=== PATIENT | male | born 1940 | race Caucasian/White ===

== ENCOUNTER → 2020-06-19 13:34 | Outpatient (BNVA) | payer MEDICARE, SELFPAY | PROVIDERS: PCP Family Medicine; Visit Provider Anesthesiology | DX: M96.1 Postlaminectomy syndrome, not elsewhere classified (principal); M48.07 Spinal stenosis, lumbosacral region | CPT/HCPCS: 99204 ==

== ENCOUNTER 2020-07-01 09:00 | Outpatient (RCR) | payer MEDICARE, SELFPAY | END 2020-08-08 23:55 | disposition home or self-care (01) | LOC: HO.PAOS 09:00 | PROVIDERS: Visit Provider Psychologist | DX: F43.21 Adjustment disorder with depressed mood (principal) | CPT/HCPCS: 90791 ==

== ENCOUNTER 2020-09-13 09:09 | Day surgery (SDC) | payer MEDICARE, SELFPAY ==
[2020-09-09 11:28] VITALS: BMI 27.6
--- NOTE | 2020-09-11 12:05 | P.CONAN_ITS ---
Documented by User: Shaila Martínez 09/11/20 12:18 HPI - Anesthesia Eval Consult details Narrative: 80yo M for Lumbar Spinal Cord Simulation Trial Reviewed with Dr Uvaldo RUSSELL Past Medical History Medical History Anemia Arthritis Back pain CAD (coronary artery disease) CHF (congestive heart failure) CKD (chronic kidney disease) COPD (chronic obstructive pulmonary disease) Diabetes GERD (gastroesophageal reflux disease) Hiatal hernia High cholesterol Hx of deep venous thrombosis Hypertension Ischemic cardiomyopathy with implantable cardioverter-defibrillator (ICD) Left bundle branch block (LBBB) Orthostatic hypotension Pacemaker PVD (peripheral vascular disease) Surgical History Surgical History H/O mitral valve replacement History of esophagogastroduodenoscopy (EGD) History of femoropopliteal bypass Hx of colonoscopy Hx of coronary artery bypass graft Social History Social History Are you a primary healthcare project manager to a significant other at home: No Do you presently have visiting nurse or other home services: No Smoking Status: Former smoker Smoking Quit Date: 30 yrs ago Use of substances other than those prescribed or required for medical reasons: No Have you been hit, kicked, punched, or otherwise hurt by someone within the past year? If so, by whom?: No Advance Directives: No Advance Directives Information Provided: No Advance Directives on File: No Recently lost weight without trying: No Meds Allergies Allergy/AdvReac Type Severity Reaction Status Date / Time No Known Allergies Allergy Verified 09/09/20 11:07 Home Medications Medication Instructions Recorded Confirmed Type aspirin 81 mg tablet,delayed 81 mg PO DAILY 06/19/20 09/09/20 History release budesonide-formoterol HFA 160 2 puff INHALATION BID 06/19/20 09/09/20 History mcg-4.5 mcg/actuation aerosol inhaler carvedilol 25 mg tablet 25 mg PO BID 06/19/20 09/09/20 History cholecalciferol (vitamin D3) 50 50 mcg PO DAILY 06/19/20 09/09/20 History mcg (2,000 unit) capsule losartan 50 mg tablet 50 mg PO BID 06/19/20 09/09/20 History omeprazole 20 mg capsule,delayed 20 mg PO DAILY 06/19/20 09/09/20 History release rosuvastatin 40 mg tablet 40 mg PO DAILY 06/19/20 09/09/20 History spironolactone 25 mg tablet 25 mg PO BID 06/19/20 09/09/20 History Exam Exam Date and Time: September 11, 2020 1205 Height,Weight and Vital Signs: Height 5 ft 8.5 in Weight 83.461 kg Narrative Narrative: Per cardiology OV note 06/2020: Echo 2019: LVEF 50-55%, mild reduced RV sys function. (Full report not obtainable) Stress test 2016: Dilated LV with mod intensity, large size, mostly fixed defects involving the mid to distal anterior, inferior, and apical segments Pt had hospital admission r/t orthostatic hypotension and dehydration ICD Interr 07/29/20, on chart DDD-60, A-sensed, BiV paced 99% No shocks delivered Assessment and Plan Assessment Anesthesia Assessment: Chart Reviewed Documented by User: Percy Eden 09/13/20 10:01 [facility] Past Medical History Medical History Anemia Arthritis Back pain CAD (coronary artery disease) CHF (congestive heart failure) CKD (chronic kidney disease) COPD (chronic obstructive pulmonary disease) Diabetes GERD (gastroesophageal reflux disease) Hiatal hernia High cholesterol Hx of deep venous thrombosis Hypertension Ischemic cardiomyopathy with implantable cardioverter-defibrillator (ICD) Left bundle branch block (LBBB) Orthostatic hypotension Pacemaker PVD (peripheral vascular disease) Surgical History Surgical History H/O mitral valve replacement History of esophagogastroduodenoscopy (EGD) History of femoropopliteal bypass Hx of colonoscopy Hx of coronary artery bypass graft Social History Social History Are you a primary healthcare project manager to a significant other at home: No Do you presently have visiting nurse or other home services: No Smoking Status: Former smoker Smoking Quit Date: 30 yrs ago Use of substances other than those prescribed or required for medical reasons: No Have you been hit, kicked, punched, or otherwise hurt by someone within the past year? If so, by whom?: No Advance Directives: No Advance Directives Information Provided: No Advance Directives on File: No Recently lost weight without trying: No Meds Allergies Allergy/AdvReac Type Severity Reaction Status Date / Time No Known Allergies Allergy Verified 09/09/20 11:07 Home Medications Medication Instructions Recorded Confirmed Type aspirin 81 mg tablet,delayed 81 mg PO DAILY 06/19/20 09/09/20 History release budesonide-formoterol HFA 160 2 puff INHALATION BID 06/19/20 09/09/20 History mcg-4.5 mcg/actuation aerosol inhaler carvedilol 25 mg tablet 25 mg PO BID 06/19/20 09/09/20 History cholecalciferol (vitamin D3) 50 50 mcg PO DAILY 06/19/20 09/09/20 History mcg (2,000 unit) capsule losartan 50 mg tablet 50 mg PO BID 06/19/20 09/09/20 History omeprazole 20 mg capsule,delayed 20 mg PO DAILY 06/19/20 09/09/20 History release rosuvastatin 40 mg tablet 40 mg PO DAILY 06/19/20 09/09/20 History spironolactone 25 mg tablet 25 mg PO BID 06/19/20 09/09/20 History Exam Airway Mallampati Class: II TM Dist: >3cm Neck ROM: Full
--- NOTE | 2020-09-12 14:44 | MHC.SHP ---
Pre-Procedural Eval Section A The patient is an INPATIENT: No Changes since office visit: Yes Patient answered all questions The History & Physical has been completed within 30 days and I have reviewed it.: No Section B Chief Complaint: Postlaminectomy Syndrome Details of Present Illness: As above Relevant Family History (Specify if Yes): No Relevant Social History: None Present Medications: None Medical History: No relevant PMH History of Previous Operations: No relevant previous surgery Allergies: Allergies Allergy/AdvReac Type Severity Reaction Status Date / Time No Known Allergies Allergy Verified 09/09/20 11:07 Review of Systems Sugical H&P ROS: Negative: Constitution, Cardiovascular, Respiratory, Neurological, Psychiatric, Hem-Onc, Allergic/Immunologic, Gastrointestinal, Genitourinary, Musculoskeletal, Integumentary, Endocrine and Eyes/Ears/Nose/Throat Exam Surgical H&P Exam: Normal: HEENT, Normal: Heart, Normal: Lungs, Normal: Extremities, Normal: Abdomen, Normal: Skin and Normal: Neurological Plan Diagnosis/Plan: Unchanged I have reviewed the history and physical and performed a pertinent physical examination on my patient. No changes have occurred unless specified.
[2020-09-13] VITALS (7 sets, daily range): BP systolic 112–142; BP diastolic 49–89; PULSE 78–102; RESP 16–20; TEMP 36.1–36.3; O2SAT 95–98
--- NOTE | 2020-09-13 07:33 | FL_ITS ---
EXAMINATION: XR FLUOROSCOPY WITH IMAGES CLINICAL INFORMATION: Pain COMPARISON: None. TECHNIQUE: Fluoroscopy performed by Dr. Jose Mederos. Fluoroscopy time: 5.2 minutes DAP: 18.6 Gycm2 Images: 3 FINDINGS: There are 2 spinal stimulator electrode leads ascending in the posterior spinal canal with distal ends in region of lower thoracic spine. There are sternotomy wires and a prosthetic cardiac valve suggested on the AP view. FL/FL guidance in OR IMPRESSION: Fluoroscopy for pain management procedure.
[2020-09-13 09:35] LABS: Glucose, Whole Blood 103 mg/dL (60-115)
[2020-09-13] MEDS: ceFAZolin Sodium/Dextrose,Iso 2 GM/50 ML PIGGYBACK IV (09:54)
[2020-09-13] MEDS: Lactated Ringers 1,000 ML 20 ML IVCONT (09:54)
--- NOTE | 2020-09-13 11:54 | PM.OP ---
Brief Operative Note Date of Service: 09/13/20 Pre-op diagnosis: Postlaminectomy syndrome Post-op diagnosis: same Procedure: Trial of Nevro spinal cord stimulator Implants: Temporary leads in the thoracic epidural space Surgeon: Jose Mederos MD Anesthesia: GETA Estimated blood loss (mL): 0 Pathology: none sent Condition: stable Disposition: PACU
--- NOTE | 2020-09-13 12:57 | HO.POSTANES ---
Post Anesthesia Evaluation Post Anesthesia Evaluation Vital Signs: Vital Signs Temp Pulse Resp BP Pulse Ox 09/13/20 12:30 88 16 136/80 97 09/13/20 12:13 97 F 94 16 141/79 H 96 09/13/20 11:58 96 20 123/49 L 98 09/13/20 11:53 83 20 121/86 98 09/13/20 11:48 78 16 112/89 98 09/13/20 11:43 97.0 F 82 16 140/80 H 98 09/13/20 09:40 97.4 F 102 H 16 142/71 H 95 Anesthesia: Monitored Mental Status: Awake Pain Control: Satisfactory Nausea/Vomiting: None Hydration: Adequate Anesthesia-Related Issues: No Anes. Related Issues
--- NOTE | 2020-09-15 10:07 | P.OP_ITS ---
Operative Note Operative Note Date of Service: 09/13/20 Narrative: Mr. Dejesus is very pleasant 80 y.o years old gentleman who came today into the operating room for trial of spinal cord stimulator NEVRO for the treatment of post laminectomy syndrome. Preoperatively patient received 2g c efazoline IV approximately 30 minutes before the procedure. After obtaining informed consent patient was brought to the operating room, HE was positioned prone on operating table, [place] [employer] monitors were applied and patient was deeply sedated. The patient was taken inside of the operating room where he was positioned prone operating table. Time-out was performed delineating correct site, side, the nature of the procedure, patient's allergy, preoperative antibiotic if needed. All operating room staff was participating in OR time-out procedure. Patient's entire back was prepped with ChloraPrep twice and draped with full body fenestrated drape. Sterilely draped C-arm was brought over operating field and sqare picture of T11-T12 L1 L2 vertebrae as were demonstrated on the screen. Attention FIRST was concentrated on the L1-L2 epidural interspace. The location of the projection of the right pedicle center of the L3 vertebra was found on the skin using C-arm. This location was injected with mixture of lidocaine 2% and Marcaine 0.5% 5 cc. After that 11 blade was used to make a danie on the skin. 10 cm 14 gauge introducer epidural needle was inserted th rough the danie and advanced to L1-L2 epidural interspace. The advancement of the needle was performed on anterior posterior and lateral views. Guitar wire and loss of resistance technique were used to locate epidural space. When guitar wire was spread in the epidural fashion, epidural lead was inserted through the skin and it was advanced to T8 position SLIGHTLY LEFT, OF THE MIDLINE. After that location of the projection of the LEFT pedicle center of the L3 vertebra was found on the skin using C-arm. This location was injected with mixture of lidocaine 2% and Marcaine 0.5% 5 cc. After that 11 blade was used to make a danie on the skin. 10 cm 14 gauge curved introducer epidural needle was inserted through the danie and advanced to L1-L2 epidural interspace. The advancement of the needle was performed on anterior posterior and lateral views. Guitar wire and loss of resistance technique were used to locate epidural space. When guitar wire was spread in the epidural fashion, epidural lead was inserted through the needle and advanced to the middle of T9 epidural interspace right to the existing electrode. At this moment patient was awaken and the epidural leads were connected to the testing device.Impedance was found to be satisfactory, the needles were withdrawn, the stylette wires were removed from the epidural leads. The anchoring devices were dislodged on the leads and advanced to the level of the skin. The anchoring devices were sutured with two 0-0 silk sutures to the skin of the patient. The fixation screw of each anchoring device was rotated until 3 clicks were heard. The leads were connected to testing device. Bacitracin ointment was applied to the entrance point of bilateral needles. Sterile dressing was applied to the patient's back. The testing wires was also taped to the patient's back.
== END 2020-09-13 12:53 | disposition home or self-care (01) ==
PROVIDERS: PCP Family Medicine; Visit Provider Anesthesiology
PROC: (CPT 63650; principal; 2020-09-13 10:40)
DX: M96.1 Postlaminectomy syndrome, not elsewhere classified (principal); D64.9 Anemia, unspecified; I13.0 Hypertensive heart and chronic kidney disease with heart failure and stage 1 through stage 4 chronic kidney disease, or unspecified chronic kidney disease; N18.9 Chronic kidney disease, unspecified; I50.9 Heart failure, unspecified; R73.03 Prediabetes; I25.5 Ischemic cardiomyopathy; I11.0 Hypertensive heart disease with heart failure; I44.7 Left bundle-branch block, unspecified; I95.1 Orthostatic hypotension; J44.9 Chronic obstructive pulmonary disease, unspecified; Z95.810 Presence of automatic (implantable) cardiac defibrillator; I73.9 Peripheral vascular disease, unspecified; Z79.899 Other long term (current) drug therapy; Z79.51 Long term (current) use of inhaled steroids; Z87.891 Personal history of nicotine dependence
CPT/HCPCS: 63650 ×2; 82947; C1897; J0690; J1100; J2405; J3010

== ENCOUNTER → 2020-09-19 12:50 | Outpatient (BNVA) | payer MEDICARE, SELFPAY | PROVIDERS: PCP Family Medicine; Visit Provider Anesthesiology | DX: M96.1 Postlaminectomy syndrome, not elsewhere classified (principal); M48.07 Spinal stenosis, lumbosacral region | CPT/HCPCS: 99212 ==

== ENCOUNTER 2020-10-22 07:03 | Outpatient (REF) | payer MEDICARE, SELFPAY | END 2020-10-22 07:04 | disposition home or self-care (01) | LOC: HO.RADIR 07:03 | PROVIDERS: Visit Provider Anesthesiology | DX: Z13.89 Encounter for screening for other disorder (principal) ==

== ENCOUNTER → 2020-11-01 15:41 | Outpatient (BNVA) | payer MEDICARE, SELFPAY | PROVIDERS: PCP Family Medicine; Visit Provider Anesthesiology ==

== ENCOUNTER 2020-11-26 07:15 | Outpatient (REF) | payer MEDICARE, SELFPAY | END 2020-11-26 07:16 | disposition home or self-care (01) | LOC: HO.RADIR 07:15 | PROVIDERS: Visit Provider Anesthesiology | DX: Z13.89 Encounter for screening for other disorder (principal) ==

== ENCOUNTER 2020-11-26 11:16 | Day surgery (SDC) | payer MEDICARE, SELFPAY ==
--- NOTE | 2020-10-21 11:53 | HO.ANESPROP2 ---
HPI - Anesthesia Eval Consult details Narrative: 80yo M for Spinal Stimulation Implant s/p spinal stim trial 09/13/20 with GA-ETT 7.5 Pt rescheduled by surgeon DREW Active Problems Active Problems: All Active Problems (Updated 09/19/20 @ 17:07 by Jose Mederos MD) Post laminectomy syndrome (Acute) Spinal stenosis (Acute) Past Medical History Medical History Anemia Arthritis Back pain CAD (coronary artery disease) CHF (congestive heart failure) CKD (chronic kidney disease) COPD (chronic obstructive pulmonary disease) Diabetes GERD (gastroesophageal reflux disease) Hiatal hernia High cholesterol Hx of deep venous thrombosis Hypertension Ischemic cardiomyopathy with implantable cardioverter-defibrillator (ICD) Left bundle branch block (LBBB) Orthostatic hypotension Pacemaker PVD (peripheral vascular disease) Surgical History Surgical History H/O mitral valve replacement History of esophagogastroduodenoscopy (EGD) History of femoropopliteal bypass Hx of colonoscopy Hx of coronary artery bypass graft Social History Social History Smoking Status: Former smoker Meds Allergies Allergy/AdvReac Type Severity Reaction Status Date / Time No Known Allergies Allergy Verified 09/09/20 11:07 Home Medications Medication Instructions Recorded Confirmed Last Taken Type aspirin 81 mg tablet,delayed 81 mg PO DAILY 06/19/20 10/17/20 09/06/20 07:00 History release budesonide-formoterol HFA 160 2 puff INHALATION BID 06/19/20 10/17/20 09/13/20 07:00 History mcg-4.5 mcg/actuation aerosol inhaler carvedilol 25 mg tablet 25 mg PO BID 06/19/20 10/17/20 09/13/20 07:00 History cholecalciferol (vitamin D3) 50 50 mcg PO DAILY 06/19/20 10/17/20 09/13/20 07:00 History mcg (2,000 unit) capsule losartan 50 mg tablet 50 mg PO BID 06/19/20 10/17/20 09/13/20 07:00 History omeprazole 20 mg capsule,delayed 20 mg PO DAILY 06/19/20 10/17/20 09/13/20 07:00 History release rosuvastatin 40 mg tablet 40 mg PO DAILY 06/19/20 10/17/20 09/13/20 07:00 History spironolactone 25 mg tablet 25 mg PO BID 06/19/20 10/17/20 09/13/20 07:00 History Exam Exam Date and Time: October 21, 2020 1153 Narrative Narrative: Per cardiology OV note 06/2020: Echo 2019: LVEF 50-55%, mild reduced RV sys function. (Full report not obtainable) Stress test 2016: Dilated LV with mod intensity, large size, mostly fixed defects involving the mid to distal anterior, inferior, and apical segments Pt had hospital admission r/t orthostatic hypotension and dehydration ICD Interr 07/29/20, on chart DDD-60, A-sensed, BiV paced 99% No shocks delivered Assessment and Plan Assessment Anesthesia Assessment: Chart Reviewed
--- NOTE | 2020-11-25 09:10 | HO.ANESPROP2 ---
Documented by User: Shaila Wilkesney 11/25/20 09:13 HPI - Anesthesia Eval Consult details Narrative: 80yo M for Lumbar Spinal Stimulation Implant s/p stim trial 08/2020 with GA-ETT 7.5 PMFSH Active Problems Active Problems: All Active Problems (Updated 09/19/20 @ 17:07 by Jose Mederos MD) Post laminectomy syndrome (Acute) Spinal stenosis (Acute) Past Medical History Medical History Anemia Arthritis Back pain CAD (coronary artery disease) CHF (congestive heart failure) CKD (chronic kidney disease) COPD (chronic obstructive pulmonary disease) Diabetes GERD (gastroesophageal reflux disease) Hiatal hernia High cholesterol Hx of deep venous thrombosis Hypertension Ischemic cardiomyopathy with implantable cardioverter-defibrillator (ICD) Left bundle branch block (LBBB) Orthostatic hypotension Pacemaker PVD (peripheral vascular disease) Surgical History Surgical History H/O mitral valve replacement History of esophagogastroduodenoscopy (EGD) History of femoropopliteal bypass Hx of colonoscopy Hx of coronary artery bypass graft Social History Social History Smoking Status: Former smoker Use of substances other than those prescribed or required for medical reasons: No Have you been hit, kicked, punched, or otherwise hurt by someone within the past year? If so, by whom?: No Advance Directives: No Advance Directives Information Provided: No Recently lost weight without trying: No Meds Allergies Allergy/AdvReac Type Severity Reaction Status Date / Time No Known Allergies Allergy Verified 09/09/20 11:07 Home Medications Medication Instructions Recorded Confirmed Last Taken Type aspirin 81 mg tablet,delayed 81 mg PO DAILY 06/19/20 10/17/20 11/18/20 History release budesonide-formoterol HFA 160 2 puff INHALATION BID 06/19/20 10/17/20 09/13/20 07:00 History mcg-4.5 mcg/actuation aerosol inhaler carvedilol 25 mg tablet 25 mg PO BID 06/19/20 10/17/20 11/26/20 History cholecalciferol (vitamin D3) 50 50 mcg PO DAILY 06/19/20 10/17/20 09/13/20 07:00 History mcg (2,000 unit) capsule losartan 50 mg tablet 50 mg PO BID 06/19/20 10/17/20 09/13/20 07:00 History omeprazole 20 mg capsule,delayed 20 mg PO DAILY 06/19/20 10/17/20 11/26/20 History release rosuvastatin 40 mg tablet 40 mg PO DAILY 06/19/20 10/17/20 09/13/20 07:00 History spironolactone 25 mg tablet 25 mg PO BID 06/19/20 10/17/20 11/26/20 History Exam Exam Date and Time: November 25, 2020 0910 Narrative Narrative: Per cardiology OV note 06/2020: Echo 2019: LVEF 50-55%, mild reduced RV sys function. (Full report not obtainable) Stress test 2016: Dilated LV with mod intensity, large size, mostly fixed defects involving the mid to distal anterior, inferior, and apical segments Pt had hospital admission r/t orthostatic hypotension and dehydration ICD Interr 07/29/20, on chart DDD-60, A-sensed, BiV paced 99% No shocks delivered Assessment and Plan Assessment Anesthesia Assessment: Chart Reviewed Documented by User: Ericka Acuña 11/26/20 13:43 [facility] Past Medical History Medical History Anemia Arthritis Back pain CAD (coronary artery disease) CHF (congestive heart failure) CKD (chronic kidney disease) COPD (chronic obstructive pulmonary disease) Diabetes GERD (gastroesophageal reflux disease) Hiatal hernia High cholesterol Hx of deep venous thrombosis Hypertension Ischemic cardiomyopathy with implantable cardioverter-defibrillator (ICD) Left bundle branch block (LBBB) Orthostatic hypotension Pacemaker PVD (peripheral vascular disease) Family History Family history of problems with anesthesia: No Surgical History Surgical History H/O mitral valve replacement History of esophagogastroduodenoscopy (EGD) History of femoropopliteal bypass Hx of colonoscopy Hx of coronary artery bypass graft History of Problems with Anesthesia: No Social History Social History Smoking Status: Former smoker Use of substances other than those prescribed or required for medical reasons: No Have you been hit, kicked, punched, or otherwise hurt by someone within the past year? If so, by whom?: No Advance Directives: No Advance Directives Information Provided: No Recently lost weight without trying: No Meds Allergies Allergy/AdvReac Type Severity Reaction Status Date / Time No Known Allergies Allergy Verified 09/09/20 11:07 Home Medications Medication Instructions Recorded Confirmed Last Taken Type aspirin 81 mg tablet,delayed 81 mg PO DAILY 06/19/20 10/17/20 11/18/20 History release budesonide-formoterol HFA 160 2 puff INHALATION BID 06/19/20 10/17/20 09/13/20 07:00 History mcg-4.5 mcg/actuation aerosol inhaler carvedilol 25 mg tablet 25 mg PO BID 06/19/20 10/17/20 11/26/20 History cholecalciferol (vitamin D3) 50 50 mcg PO DAILY 06/19/20 10/17/20 09/13/20 07:00 History mcg (2,000 unit) capsule losartan 50 mg tablet 50 mg PO BID 06/19/20 10/17/20 09/13/20 07:00 History omeprazole 20 mg capsule,delayed 20 mg PO DAILY 06/19/20 10/17/20 11/26/20 History release rosuvastatin 40 mg tablet 40 mg PO DAILY 06/19/20 10/17/20 09/13/20 07:00 History spironolactone 25 mg tablet 25 mg PO BID 06/19/20 10/17/20 11/26/20 History Exam Height,Weight and Vital Signs: Vital Signs Temp Pulse Resp BP Pulse Ox 11/26/20 11:52 97.6 F 87 18 103/50 L 98 Pertinent Lab Results Pertinent Lab Results: Lab Results 11/26/20 11/26/20 11/26/20 Range/Units 11:58 12:15 12:15 WBC 10.7 (4.8-10.8) X10*3/uL RBC 4.38 L (4.60-5.80) X10*6/uL Hgb 14.1 (14.0-18.0) g/dl Hct 42.3 (42-52) % MCV 96.6 (80-98) fL MCH 32.2 (27.0-33.0) pg MCHC 33.3 (31.0-36.0) g/dl RDW 12.3 (11.0-16.0) % Plt Count 224 (160-400) X10*3/uL MPV 9.1 L (9.4-12.4) fL Absolute Nucleated RBC 0.000 (0.0-0.012) X10*3/uL Nucleated RBC % (auto) 0.0 (0.0-0.2) /100WBC Sodium 141 (135-145) mmol/L Potassium 4.3 (3.3-5.1) mmol/L Chloride 104 (96-108) mmol/L Carbon Dioxide 23 (22-29) mmol/L Anion Gap 18 (12-20) BUN 13 (9-16) mg/dL Creatinine 0.83 (0.5-1.4) mg/dL Estim Creat Clear Calc 29.0 Estimated GFR > 60 POC Glucose 98 (60-115) mg/dL Fasting Glucose 104 H (60-99) mg/dL Calcium 9.0 (8.4-10.2) mg/dL Airway Mallampati Class: II TM Dist: >3cm Neck ROM: Full Heart: RRR Lungs: CTAB Assessment and Plan Assessment Anesthesia Assessment: Anesthesia Plan Discussed and Chart Reviewed Final Anesthetic Review NPO: Yes ASA Class: III Final Preanesthetic Review: No Changes in Pt Med Stat, Meds/Allgs Chart Reviewed, Consent Obtained/Reviewed and Anes Risks/Benef Reviewed Patient Risk: High Procedure Risk: Intermediate Assessment/Block/Sedation in SS: Assess/Block/Sedation-SS Anesthetic Plan Anesthetic Plan: MAC: Disposition: Standard PACU
--- NOTE | ~2020-11-26 | FL_ITS ---
EXAMINATION: XR FLUOROSCOPY WITH IMAGES CLINICAL INFORMATION: Spinal stimulator implant COMPARISON: X-ray 09/13/2020 TECHNIQUE: Fluoroscopy performed by Dr. Jose Mederos. Fluoroscopy time: 5.5 minutes DAP: 113 mGycm2 Images: 4 FINDINGS: There are posterior epidural 2 spinal stimulators in the mid dorsal spine. There is mild spondylosis. No lytic process. FL/FL guidance in OR IMPRESSION: Fluoroscopy was provided to Dr. Jose Mederos during spinal stimulator insertion
[2020-11-26 11:38] VITALS: BMI 27.9
[2020-11-26 11:52] VITALS: BP 103/50; PULSE 87; RESP 18; TEMP 36.4; O2SAT 98
[2020-11-26 12:06] LABS: Glucose, Whole Blood 98 mg/dL (60-115)
[2020-11-26] MEDS: Lactated Ringers 1,000 ML 20 ML IVCONT (12:13)
--- NOTE | 2020-11-26 12:19 | PC.NURSE ---
dr gregory at bedside speaking to patient pt verbalized understanding of plan of care
[2020-11-26 12:21] LABS: Hematocrit 42.3 % (42-52); Hemoglobin 14.1 g/dl (14.0-18.0); Mean Corpuscular HGB Conc 33.3 g/dl (31.0-36.0); Mean Corpuscular Hemoglobin 32.2 pg (27.0-33.0); Mean Corpuscular Volume 96.6 fL (80-98); Mean Platelet Volume 9.1 fL (9.4-12.4); Platelet Count 224 X10*3/uL (160-400); Red Blood Count 4.38 X10*6/uL (4.60-5.80); Red Cell Distribution Width 12.3 % (11.0-16.0); White Blood Count 10.7 X10*3/uL (4.8-10.8)
[2020-11-26 12:52] LABS: Anion Gap 18 (12-20); Blood Urea Nitrogen 13 mg/dL (9-16); Carbon Dioxide 23 mmol/L (22-29); Chloride 104 mmol/L (96-108); Estimated Glomerular Filt Rate > 60; Glucose Fasting 104 mg/dL (60-99); Potassium 4.3 mmol/L (3.3-5.1); Sodium 141 mmol/L (135-145)
--- NOTE | 2020-11-26 13:11 | MHC.SHP ---
Pre-Procedural Eval Section B Chief Complaint: postlaminectomy syndrome Details of Present Illness: as above Relevant Family History (Specify if Yes): No Relevant Social History: None Present Medications: see Short Stay Collaborative assessment Medical History: No relevant PMH History of Previous Operations: Relevant previous surgery/procedure and date(s) Allergies: Allergies Allergy/AdvReac Type Severity Reaction Status Date / Time No Known Allergies Allergy Verified 09/09/20 11:07 Review of Systems Sugical H&P ROS: Negative: Constitution, Cardiovascular, Respiratory, Neurological, Psychiatric, Hem-Onc, Allergic/Immunologic, Gastrointestinal, Genitourinary, Musculoskeletal, Integumentary, Endocrine and Eyes/Ears/Nose/Throat Exam Surgical H&P Exam: Normal: HEENT, Normal: Heart, Normal: Lungs, Normal: Extremities, Normal: Abdomen, Normal: Skin and Normal: Neurological Plan Diagnosis/Plan: Unchanged I have reviewed the history and physical and performed a pertinent physical examination on my patient. No changes have occurred unless specified.
[2020-11-26 15:35] VITALS: BP 126/75; PULSE 81; RESP 12; TEMP 36.8; O2SAT 97
--- NOTE | 2020-11-26 15:38 | PM.OP ---
Brief Operative Note Date of Service: 11/26/20 Pre-op diagnosis: Postlaminectomy syndrome Post-op diagnosis: same Procedure: Implantation of spinal cord stimulator Nevro Implants: Spinal cord battery and tool epidural stimulating leads Surgeon: Jose Mederos MD Anesthesia: MAC Estimated blood loss (mL): 20 Condition: stable Disposition: PACU
[2020-11-26 15:50] VITALS: BP 110/71; PULSE 76; RESP 16; O2SAT 98
[2020-11-26 16:05] VITALS: BP 113/45; PULSE 80; RESP 16; TEMP 36.8; O2SAT 95
[2020-11-26] MEDS: oxyCODONE HCl Immed Release 5 MG TABLET PO (16:13)
--- NOTE | 2020-11-26 16:48 | P.OP_ITS ---
Operative Note Operative Note Date of Service: 11/26/20 Narrative: Mr. Dejesus is very pleasant 80 years old gentleman who came today into the operating room for implantation of spinal cord stimulator for the treatment of pain related to degenerative disc disease. He had successful trial of spinal cord stimulation. Preoperatively patient received 2 g cefazolin _approximately 30 minutes before the procedure. After obtaining informed consent patient was brought to the operating room, he was positioned prone on operating table, [place] [employer] monitors were applied and patient was deeply sedated. Time-out was performed delineating correct site, side, the nature of the procedure, patient's allergy, preoperative antibiotic. All operating room staff was participating in OR time-out procedure. Patient's entire back was prepped with ChloraPrep twice and draped with full body drape including Ioban film. Sterilely draped C-arm was brought over operating field and sqare picture of T12, L1, L2 vertebrae as were demonstrated on the screen. THE PROJECTION OF L2-L3 SPINAL PROCESSES TO THE SKIN WERE INFILTRATED WITH LIDOCAINE 2% MIXED WITH BUPIVACAINE 0.5%. Six CM LONG VERTICAL INCISION using a 10 blade scalpel WAS PERFORMED IN STRICT MIDLINE VERTICAL F ASHION. THOROUGH HEMOSTASIS WAS PERFORMED using electrocautery. Thorough tissue dissections was performed until prevertebral fascia was freed from overlying tissues. Attention FIRST was concentrated on the RIGHT L1-L2 epidural interspace. The location of the projection of the right pedicle center of the L3 vertebra was found on the prevertebral fascia using C-arm. This location was injected with mixture of lidocaine 2% and Marcaine 0.5% 5 cc in approximate direction of needle advancement.. After that 10 cm 14 gauge straight introducer epidural needle was inserted through the fascia and advanced toward L1-L2 epidural interspace. The advancement of the needle was performed on anterior posterior and lateral views. Guitar wire and loss of resistance technique were used to locate epidural space. When guitar wire was spread in the epidural fashion, epidural lead was inserted through the skin and it was advanced to T8 position POSTERIOR EPIDURAL SPACE slightly left TO THE MIDLINE. After that location of the projection of the LEFT pedicle center of the L3 vertebra was found -using C-arm. This location was injected with mixture of lidocaine 2% and Marcaine 0.5% 5 cc.. . 10 cm 14 gauge curved introducer epidural needle was inserted through the fascia and advanced to T12-L1 epidural interspace. The advancement of the needle was performed on anterior posterior and lateral views. Guitar wire and loss of resistance technique were used to locate epidural space. When guitar wire was spread in the epidural fashion, epidural lead was inserted through the needle and advanced to the T9 POSTERIOR EPIDURAL SPACE SLIGHTLY right to the existing line .. THE LOCATION OF BOTH LEADS WAS VERIFIED ON ANTERIOR POSTERIOR AND LATERAL VIEWS. After satisfactory position of the leads were established the needles were withdrawn, the stylette wires were removed from the epidural leads. The anchoring devices were dislodged on the leads and advanced to the level of the skin. The anchoring devices were advanced along the epidural leads and dislodged and epidural leads at the level of prevertebral fascia. They were sutured to prevertebral fascia with 2 separate etibone sutures per each anchoring device. The fixating screws was fixed until 3 clicks were heard on each anchoring device. After that the wound was irrigated with copious amount of Vancomycin containing normal saline and packed with Vancomycin soaked 4 x 4. After that attention was concentrated on the left loin of the patient where he wanted battery to be implanted. 6 cm long horizontal incision was performed 3 cm below the lowest portion of the left 12th rib. Subcutaneous pocket was formed not deeper than 1.5 cm under the skin using dull dissection and electrocautery dissection. Thorough hemostasis was obtained. The wound was irrigated with copious amount of Vancomycin contained normal saline. Tunneling device was used to connect the 2 wounds and epidural leads were dislodged into side wound. They were connected to the Nevro battery and locked with a locking screwdriver device. Impedance was checked and appeared to be satisfactory. After that the anchoring sutures ethibond were applied in the most superior medial and most superior lateral corners of the wound. After that they were connected to the anchoring holes on the body of the battery, the epidural leads were gathered behind the body of the-battery, the battery and the leads were inserted into the pocket wound and after that the anchoring 2 sutures were tied. The wounds were irrigated again with Vancomycin containing normal saline, thorough hemostasis was checked, and after that the wounds were closed using 0 Vicryl. After that the skin edges wore approximated using 2 0 Vicryl, cony were applied to the wounds at the level of the skin. Bacitracin ointment was applies to the level of the cony and sterile dressings were applied to the staple lines. Medipore Tape was applied to hold the dressing to the patient's skin. Abdominal binder to wear was provided to the patient. At this moment patient was awaken and transferred to the bed. He was recovering uneventfully in PACU.
== END 2020-11-26 16:28 | disposition home or self-care (01) ==
PROVIDERS: Nurse Practitioner; PCP Family Medicine; Visit Provider Anesthesiology
PROC: (CPT 63685; principal; 2020-11-26 13:00)
DX: M96.1 Postlaminectomy syndrome, not elsewhere classified (principal); M48.07 Spinal stenosis, lumbosacral region; D64.9 Anemia, unspecified; I12.9 Hypertensive chronic kidney disease with stage 1 through stage 4 chronic kidney disease, or unspecified chronic kidney disease; N18.9 Chronic kidney disease, unspecified; R73.03 Prediabetes; Z79.82 Long term (current) use of aspirin; Z79.899 Other long term (current) drug therapy
CPT/HCPCS: 63685; 63650 ×2; 36415; 80048; 82947; 85027; C1713; C1778; C1787; C1816; J0690; J2250; J2370; J3010; J3370

== ENCOUNTER → 2020-12-02 12:55 | Outpatient (BNVA) | payer MEDICARE, SELFPAY | PROVIDERS: PCP Family Medicine; Visit Provider Anesthesiology | DX: M96.1 Postlaminectomy syndrome, not elsewhere classified (principal); M48.07 Spinal stenosis, lumbosacral region | CPT/HCPCS: 99212 ==

== ENCOUNTER → 2020-12-09 13:01 | Outpatient (BNVA) | payer MEDICARE, SELFPAY | PROVIDERS: PCP Family Medicine; Visit Provider Anesthesiology | DX: M96.1 Postlaminectomy syndrome, not elsewhere classified (principal); M48.07 Spinal stenosis, lumbosacral region | CPT/HCPCS: 99212 ==

== ENCOUNTER → 2022-11-02 15:24 | Outpatient (BNVA) | payer MEDICARE, SELFPAY | PROVIDERS: PCP Family Medicine; Visit Provider Anesthesiology | DX: M96.1 Postlaminectomy syndrome, not elsewhere classified (principal); M48.07 Spinal stenosis, lumbosacral region; M46.1 Sacroiliitis, not elsewhere classified; M53.3 Sacrococcygeal disorders, not elsewhere classified | CPT/HCPCS: 99212 ==

== ENCOUNTER 2022-12-15 06:06 | Outpatient (REF) | payer MEDICARE, SELFPAY ==
--- NOTE | ~2022-12-15 | FL_ITS ---
EXAMINATION: XR FLUOROSCOPY WITH IMAGES CLINICAL INFORMATION: M53.3 - Sacrococcygeal disorders, not elsewhere classified COMPARISON: None available. TECHNIQUE: Fluoroscopy Supervised By: Dr. Jose Mederos. Fluoroscopy Time: 0.7 minutes. Cumulative Dose: 15.0 mGy. DAP: 4.08 Gycm2. Images: 2. FINDINGS: Spinal needle overlies mid to lower left SI joint and mid right SI joint, respectively. There is contrast in the periarticular soft tissues with probable early intra-articular contrast. There is fusion hardware and clips overlying lower lumbar spine. FL/FL guidance in treatment room IMPRESSION: Fluoroscopy for pain management procedures.
== END 2022-12-15 06:07 | disposition home or self-care (01) ==
LOC: CF 06:06
PROVIDERS: Visit Provider Anesthesiology
DX: M53.3 Sacrococcygeal disorders, not elsewhere classified (principal); M96.1 Postlaminectomy syndrome, not elsewhere classified; M48.07 Spinal stenosis, lumbosacral region; M46.1 Sacroiliitis, not elsewhere classified
CPT/HCPCS: 27096

== ENCOUNTER → 2022-12-16 14:41 | Outpatient (BNVA) | payer MEDICARE, SELFPAY | PROVIDERS: PCP Family Medicine; Visit Provider Anesthesiology | DX: M96.1 Postlaminectomy syndrome, not elsewhere classified (principal); M46.1 Sacroiliitis, not elsewhere classified; M48.07 Spinal stenosis, lumbosacral region; M53.3 Sacrococcygeal disorders, not elsewhere classified | CPT/HCPCS: Q3014 ==

== ENCOUNTER 2023-01-12 05:56 | Outpatient (REF) | payer MEDICARE, SELFPAY ==
--- NOTE | ~2023-01-12 | FL_ITS ---
EXAMINATION: XR FLUOROSCOPY WITH IMAGES CLINICAL INFORMATION: Post laminectomy syndrome COMPARISON: None available. TECHNIQUE: Fluoroscopy Supervised By: Dr. Jose Mederos. Fluoroscopy Time: 0.2. Cumulative Dose: 4.5 mGy. DAP: 1.2 Gycm2. Images: 2. FINDINGS: Images demonstrate needle projecting over the lower sacrum. FL/FL guidance in treatment room IMPRESSION: Fluoroscopy guidance for pain management procedure.
== END 2023-01-12 05:57 | disposition home or self-care (01) ==
LOC: CF 05:56
PROVIDERS: Visit Provider Anesthesiology
DX: M96.1 Postlaminectomy syndrome, not elsewhere classified (principal); M48.07 Spinal stenosis, lumbosacral region
CPT/HCPCS: 62323; J3301; Q9965

== ENCOUNTER → 2023-02-08 08:47 | Outpatient (BNVA) | payer MEDICARE, SELFPAY | PROVIDERS: PCP Family Medicine; Visit Provider Anesthesiology | DX: M96.1 Postlaminectomy syndrome, not elsewhere classified (principal); M48.07 Spinal stenosis, lumbosacral region; M46.1 Sacroiliitis, not elsewhere classified; M53.3 Sacrococcygeal disorders, not elsewhere classified | CPT/HCPCS: 99212 ==

== ENCOUNTER → 2023-02-17 08:25 | Outpatient (BNVA) | payer MEDICARE, SELFPAY | PROVIDERS: PCP Family Medicine; Visit Provider Anesthesiology | DX: M96.1 Postlaminectomy syndrome, not elsewhere classified (principal); M48.07 Spinal stenosis, lumbosacral region; M46.1 Sacroiliitis, not elsewhere classified; M53.3 Sacrococcygeal disorders, not elsewhere classified | CPT/HCPCS: Q3014 ==

== ENCOUNTER 2023-03-16 06:07 | Outpatient (REF) | payer MEDICARE, SELFPAY ==
--- NOTE | ~2023-03-16 | FL_ITS ---
EXAMINATION: XR FLUOROSCOPY WITH IMAGES CLINICAL INFORMATION: Postlaminectomy syndrome, not elsewhere classified. COMPARISON: None available. TECHNIQUE: Fluoroscopy Supervised By: Dr. Jose Mederos. Fluoroscopy Time: 0.2 minutes. Cumulative Dose: 4.54 mGy. DAP: 0.0789 Gycm2. Images: 2. FINDINGS: There are 2 digital images AP and lateral views reveal right pedicle screws at L4 and L3 vertebra with interconnecting abad. There is mild levoscoliosis lumbar spine. There are 2 electrodes seen to extending from L4-L5 disc level superiorly with the tips not in the [id number]. No aggressive lytic or sclerotic process seen. There is a solitary needle positioned posterior L3 vertebra likely in anterior epidural space or intraspinal canal. FL/FL guidance in treatment room IMPRESSION: Fluoroscopy guidance was provided to referring physician for pain management.
== END 2023-03-16 06:08 | disposition home or self-care (01) ==
LOC: CF 06:07
PROVIDERS: Visit Provider Anesthesiology
DX: M96.1 Postlaminectomy syndrome, not elsewhere classified (principal); M48.07 Spinal stenosis, lumbosacral region; M46.1 Sacroiliitis, not elsewhere classified; M53.3 Sacrococcygeal disorders, not elsewhere classified
CPT/HCPCS: 62323; J1170

== ENCOUNTER 2023-03-16 09:56 | Outpatient (AMB) | payer MEDICARE, SELFPAY ==
--- NOTE | 2023-03-16 10:04 | MHC.OFFVIS ---
Intake Vital Signs 03/16/23 10:05 03/16/23 12:35 Height 5 ft 8 in 5 ft 8 in Weight 184 lb 184 lb BMI 28.0 28.0 BP 128/76 116/70 Blood Pressure Location Rt brachial Rt brachial Position Sitting Sitting Respiration 16 14 Pulse 103 H 96 Pulse Source Pulse Oximeter Pulse Oximeter Pulse Oximetry (%) 98 98 Oxygen Delivery Method Room Air Room Air Comment Pre-op Post-op Intake Visit Reasons: Trial of ITDD Dilaudid Allergies No Known Allergies Allergy (Verified 03/16/23 10:04) PFSH Medical History Anemia Arthritis Back pain CAD (coronary artery disease) CHF (congestive heart failure) CKD (chronic kidney disease) COPD (chronic obstructive pulmonary disease) Diabetes GERD (gastroesophageal reflux disease) Hiatal hernia High cholesterol Hx of deep venous thrombosis Hypertension Ischemic cardiomyopathy with implantable cardioverter-defibrillator (ICD) Left bundle branch block (LBBB) Orthostatic hypotension Pacemaker PVD (peripheral vascular disease) Surgical History H/O mitral valve replacement History of esophagogastroduodenoscopy (EGD) History of femoropopliteal bypass Hx of colonoscopy Hx of coronary artery bypass graft Social History Are you a primary veterinarian laboratory animal care to a significant other at home: No Do you presently have visiting nurse or other home services: No Physical Exam Vital Signs: Last Vital Signs Pulse 96 03/16/23 12:35 Resp 14 03/16/23 12:35 BP 116/70 03/16/23 12:35 Pulse Ox 98 03/16/23 12:35 Oxygen Delivery Method Room Air 03/16/23 12:35 BMI result Body Mass Index 28.0 Results Reviewed Results Reviewed: 03/16/23 10:59 Bacitracin Oint 1 appl TOPICAL .STK-MED ONE HYDROmorphone HCl/PF [Dilaudid] 50 mg IV .STK-MED ONE 03/16/23 11:00 Lidocaine HCl 2 % MPF [Xylocaine 2 % MPF] 5 ml .ROUTE .STK-MED ONE Assessment & Plan Assessment & Plan (1) Post laminectomy syndrome: Code(s): M96.1 - Postlaminectomy syndrome, not elsewhere classified (2) Spinal stenosis: Code(s): M48.00 - Spinal stenosis, site unspecified Qualifiers: Spinal region: lumbosacral Qualified Code(s): M48.07 - Spinal stenosis, lumbosacral region (3) Sacroiliitis: Code(s): M46.1 - Sacroiliitis, not elsewhere classified (4) Pain of both sacroiliac joints: Code(s): M53.3 - Sacrococcygeal disorders, not elsewhere classified Plan: Intrathecal pain pump trial Informed consent was explained to the patient. All questions were explained and answered. The patient was taken inside of the operating room where she was positioned prone on the operating table. Time-out was performed delineating patient's name and date of , correct site, side, the nature of the procedure, patient's allergy, All operating room staff and the patient were participating in OR time-out procedure. the patient's lower back was prepped with ChloraPrep and draped with sterile utility draped. Sterilely draped C-arm was brought over the operating field and sq picture of lumbar vertebrae were delineated on the screen. the target of needle insertion was chosen between L2 and L3 vertebrae. The projection of the right lamina of the L2 vertebra was chosen as the starting point of the injection. 22 gauge 3-1/2 inch Wittaker needle was inserted through the skin after skin wheal was raised with lidocaine 2%. The needle was directed to the L2-L3 interlaminar space. The advancement of the needle was performed on intermittent anterior posterior and lateral views. On anterior posterior view needle was positioned strictly in the midline. On the lateral view needle entered in the projection of the center of the spinal canal. At that moment the stylet was removed from the needle and clear flow CSF was detected in the needle hub. After that 3 mLof the solution containing trial medication Dilaudid 60 mcg was injected into the needle. After that needle was removed sterile dressing was applied. Patient tolerated procedure well. He was taken outside of the operating room to the recovery room where he recovered uneventfully. Plan Attempt to adjust his stimulation to cover his lower back axial pain resulted in no improvement. I offered this patient on recommendation of Dr. Huddleston to perform bilateral sacroiliac joint injection diagnostic. Unfortunately the pain of this patient was decrease less 40% after the procedure I cannot consider SI joint on the suggestion of Dr. Huddleston is his pain generator. Caudal MANDIE with catheter also resulted in minimal improvement immediately after procedure and no further improvement for the rest of the time. He read pain pump brochure and agree to go for trial of pain pump. He is currently not on any opioids. He is opioid naive. Therefore we can try minimal doses of Dilaudid, however he needs to go for a psychological evaluation 1st. Orders: Orders FL guidance in treatment room 03/16/23 M48.00 - Spinal stenosis, site unspecified, M96.1 - Postlaminectomy syndrome, not elsewhere classified Coding Level of Care Code Procedure Only Diagnoses Post laminectomy syndrome M96.1 Spinal stenosis M48.07 Spinal region: lumbosacral Sacroiliitis M46.1 Pain of both sacroiliac joints M53.3
[2023-03-16 10:05] VITALS: BP 128/76; PULSE 103; RESP 16; O2SAT 98; BMI 28.0
[2023-03-16 12:35] VITALS: BP 116/70; PULSE 96; RESP 14; O2SAT 98; BMI 28.0
== END 2023-03-16 12:28 | disposition home or self-care (01) ==
PROVIDERS: PCP Family Medicine; Visit Provider Anesthesiology
DX: M96.1 Postlaminectomy syndrome, not elsewhere classified (principal); M48.00 Spinal stenosis, site unspecified; M46.1 Sacroiliitis, not elsewhere classified; M53.3 Sacrococcygeal disorders, not elsewhere classified
CPT/HCPCS: 62323

== ENCOUNTER 2023-03-22 09:09 | Outpatient (AMB) | payer MEDICARE, SELFPAY ==
--- NOTE | 2023-03-22 09:14 | A.OFFVIS_ITS ---
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 Mederos. Patient reports 80% pain relief for 22 hours with significant improvement in his functioning, day activities and mobility. However, patient reports itching for 3 hours post procedure, insomnia, constipation and urinary retention for one day. Patient reports much better pain relief than with therapeutic SIJ injections except side effects. He is willing to repeat ITDD trial with a different medication. Denies any recent cough, cold, infection, fever or other significant changes in medical history since last office visit. Patient's spouse reports patient fell the other day when getting out of bed. Denies loss of consciousness or injury. Patient reports no follow up with his PCP or seeking medical evaluation in ER. Family states they will reach out to patient's PCP office today for script for walker and follow up. PRIOR: Chris is on the phone today to discuss further treatment. 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 He received spinal cord stimulator Nevro for this condition. Although spinal cord stimulator helped his pain somewhat he is dissatisfied with the outcome. He went to his surgeon Dr. Huddleston who recommended to perform bilateral SI joint injection. Examined the patient 8 did find some signs of sacroiliac joint problem. However SI joint injection did not result in pain improvement. Less than 40% and the shorter than 6 hours. Therefore it is not his major pain generator. I offered him intrathecal drug delivery system pain pump and he decided to go for trial. We need to schedule him for psychological evaluation before the trial. Prior:? 1 year and half after the implant of spinal cord stimulator Nevro.? He reports that spinal cord stimulator continues to work and help his axial pain in the central lumbar spine.? However now he reports pain aggravation at the area of sacral bone and lumbosacral junction.? He reports severe tenderness on palpation in the projection of the left sacroiliac joint more than the right sacroiliac joint as well as pain in the palpation of the left sacroiliac joint projection.? Jefe test is positive on the left and negative on the right.? Gaenslen test is positive bilaterally.? Melissa finger test is positive on the left.? She was examined by Dr. Huddleston a neurosurgeon who is treating patient in the past.? The patient was recommended to come back to pain management office and perform bilateral sacroiliac joint injection.? I agree with Dr. Hudldeston and I will schedule patient for bilateral sacroiliac joint injection.? He went for consult for [facility] m[facility] and attempt was made to work on stimulation to alleviate his pain.? Unfortunately that was not effective. History of progressive low back pain since 2018. Previously he had a L4-L5 posterior lumbar interbody [place] [address] Huddleston. In 2019 he had screw removal, as this was thought to be the etiology of his pain. Unfortunately, he states he is in constant pain.? His pain is exacerbated by sitting and standing.? His pain is alleviated by leaning forward or laying down. He denies any radicular leg pain or weakness. He denies any bowel or bladder incontinence. In the past he has had steroid injections, but he only had moderate pain relief for a few days. He reportedly completed physical therapy about a month ago with no improvement.? He had in the past acupuncture we did not resulted in pain improvement. . [facility] Medical History Anemia Arthritis Back pain CAD (coronary artery disease) CHF (congestive heart failure) CKD (chronic kidney disease) COPD (chronic obstructive pulmonary disease) Diabetes GERD (gastroesophageal reflux disease) Hiatal hernia High cholesterol Hx of deep venous thrombosis Hypertension Ischemic cardiomyopathy with implantable cardioverter-defibrillator (ICD) Left bundle branch block (LBBB) Orthostatic hypotension Pacemaker PVD (peripheral vascular disease) Surgical History H/O mitral valve replacement History of esophagogastroduodenoscopy (EGD) History of femoropopliteal bypass Hx of colonoscopy Hx of coronary artery bypass graft Social History Are you a primary out of school hours care worker to a significant other at home: No Do you presently have visiting nurse or other home services: No Review of Systems Const All systems reviewed & are unremarkable except as noted in HPI and below ENT Reports Normal hearing present Neuro Reports Normal hearing present, Denies Abnormal speech present and Denies confusion Psych Denies confusion Physical Exam Vital Signs: Last Vital Signs Pulse 98 03/22/23 09:18 BP 127/61 03/22/23 09:18 Pulse Ox 97 03/22/23 09:18 Oxygen Delivery Method Room Air 03/22/23 09:18 BMI result Body Mass Index 28.0 Const General: cooperative, healthy appearing, no acute distress, alert, awake and well groomed; No confusion Nutritional Appearance: average body habitus and well nourished Orientation/consciousness: patient oriented x3 and No confusion Limitations: No ambulation with cane, No ambulation with walker and No wheelchair HEENT Head: Yes normal to inspection, Yes normocephalic, Yes atraumatic and No scalp tenderness Ears: hearing grossly normal bilaterally (hearing aids present) Face and sinus: Yes normal facial exam and Yes face symmetric Eyes General: appearance normal, both eyes and all related structures Neck Neck: Yes normal visual inspection, Yes no lymphadenopathy, Yes supple and No anterior neck swelling Resp Effort & Inspection: normal respiratory effort, no audible wheezes, no cough and symmetric chest movement Cardio Jugular venous distension: no JVD GI Inspection: Yes normal to inspection Palpation (GI): Soft to palpation and no guarding Back/Spine/Pelvis Thoracic/Lumbar Spine: Thoracic/lumbar spine scar(s) (well healed lumbar incision), pain with thoraco-lumbar ROM, No paraspinal muscle tenderness, thoraco-lumbar ROM limited (limited ROM with forward flexion/dorsiflexion), No thoracic spinal tenderness and No lumbar spinal tenderness Pelvis: no buttock tenderness Sacroiliac joints: on the right nontender and on the left (+Melissa, +Jefe's) tender to palpation Sacrum: no tenderness Skin General skin exam: ecchymosis (posterior right lower neck with healing bruising) Trauma: no lacerations or abrasions Wounds: no wounds Neuro General: patient oriented x3 and No confusion Cranial nerves: Yes Normal hearing present Speech: No Abnormal speech present Gait exam (Neuro): Normal gait present Motor exam (neuro): 5 motor strength present throughout Extrem General: Yes capillary refill normal and Yes no pedal edema Psych Appearance: grossly normal and well kempt Speech and movement: Clear speech present Affect: normal affect Thought process: Normal thought process present Insight: Fair insight present (Psych) Judgement: Good judgement present (Psych) Assessment & Plan Assessment & Plan (1) Pain of both sacroiliac joints: Code(s): M53.3 - Sacrococcygeal disorders, not elsewhere classified (2) Sacroiliitis: Code(s): M46.1 - Sacroiliitis, not elsewhere classified (3) Post laminectomy syndrome: Code(s): M96.1 - Postlaminectomy syndrome, not elsewhere classified (4) Chronic pain syndrome: Code(s): G89.4 - Chronic pain syndrome Plan Patient is status post ITDD pain pump trial with Dilaudid 60 mcg on 03/16/23 with 80% pain relief for 22 hours with significant improvement in his functioning, day activities and mobility. However, patient reports itching for 3 hours post procedure, insomnia, constipation and urinary retention for one day only. Patient reports much better pain relief than with therapeutic SIJ injections except side effects. He is willing to repeat ITDD trial with a different medication. We will schedule repeat trial with minimal dose of Morphine. Expectations, risks and benefits were reviewed. Patient is aware he will be contacted to schedule this procedure. Patient's is scheduling follow up with PCP for patient r/t recent fall and script for walker. Patient declined ER visit or Urgent clinic for medical evaluation s/p fall. All questions were answered and patient is in agreement of plan. Follow-up after ITDD repeat trial and sooner if needed. Coding Level of Care Code Est Pt Level 4 (14049) Diagnoses Pain of both sacroiliac joints M53.3 Sacroiliitis M46.1 Post laminectomy syndrome M96.1 Chronic pain syndrome G89.4
[2023-03-22 09:18] VITALS: BP 127/61; PULSE 98; O2SAT 97; BMI 28.0
== END 2023-03-22 09:29 | disposition home or self-care (01) ==
PROVIDERS: PCP Family Medicine; Visit Provider Nurse Practitioner Family
DX: M53.3 Sacrococcygeal disorders, not elsewhere classified (principal); M46.1 Sacroiliitis, not elsewhere classified; M96.1 Postlaminectomy syndrome, not elsewhere classified; G89.4 Chronic pain syndrome
CPT/HCPCS: 99214

== ENCOUNTER → 2023-03-22 09:09 | Outpatient (BNVA) | payer MEDICARE, SELFPAY | PROVIDERS: PCP Family Medicine; Visit Provider Nurse Practitioner Family | DX: M53.3 Sacrococcygeal disorders, not elsewhere classified (principal); M46.1 Sacroiliitis, not elsewhere classified; M96.1 Postlaminectomy syndrome, not elsewhere classified; G89.4 Chronic pain syndrome | CPT/HCPCS: 99212 ==

== ENCOUNTER 2023-05-11 06:01 | Outpatient (REF) | payer MEDICARE, SELFPAY ==
--- NOTE | ~2023-05-11 | FL_ITS ---
EXAMINATION: XR FLUOROSCOPY WITH IMAGES CLINICAL INFORMATION: Chronic pain syndrome. COMPARISON: None available. TECHNIQUE: Fluoroscopy Supervised By: Dr. Jose Mederos. Fluoroscopy Time: 0.2 minutes. Cumulative Dose: 4.96 mGy. DAP: 1.35 Gycm2. Images: 2. FINDINGS: PA and lateral images demonstrate needle placement posterior to the superior endplate of the L3 vertebral body. There are partially visualized leads seen in the spinal canal. There is right sided posterior fusion hardware seen at L3 and L4. There are degenerative changes of the spine. FL/FL guidance in treatment room IMPRESSION: Fluoroscopy guidance for pain management procedure.
== END 2023-05-11 06:02 | disposition home or self-care (01) ==
LOC: CF 06:01
PROVIDERS: Visit Provider Anesthesiology
DX: G89.4 Chronic pain syndrome (principal); M96.1 Postlaminectomy syndrome, not elsewhere classified; M48.07 Spinal stenosis, lumbosacral region; M46.1 Sacroiliitis, not elsewhere classified; M53.3 Sacrococcygeal disorders, not elsewhere classified
CPT/HCPCS: 62323; J2270

== ENCOUNTER 2023-05-11 07:36 | Outpatient (AMB) | payer MEDICARE, SELFPAY ==
--- NOTE | 2023-05-11 07:35 | MHC.OFFVIS ---
Intake Vital Signs 05/11/23 07:41 05/11/23 10:36 05/11/23 10:38 Height 5 ft 8 in 5 ft 8 in Weight 184 lb 184 lb BMI 28.0 28.0 BP 120/58 L 122/60 110/58 L Blood Pressure Location Rt brachial Lt brachial Lt brachial Position Sitting Supine Sitting Respiration 14 16 14 Pulse 104 H 94 104 H Pulse Source Pulse Oximeter Pulse Oximeter Pulse Oximeter Pulse Oximetry (%) 97 95 94 Oxygen Delivery Method Room Air Room Air Room Air Comment Pre-Op post-op 9:39am Intake Visit Reasons: ITDD Trial with Morphine Allergies No Known Allergies Allergy (Verified 05/11/23 07:43) PFSH Medical History Anemia Arthritis Back pain CAD (coronary artery disease) CHF (congestive heart failure) CKD (chronic kidney disease) COPD (chronic obstructive pulmonary disease) Diabetes GERD (gastroesophageal reflux disease) Hiatal hernia High cholesterol Hx of deep venous thrombosis Hypertension Ischemic cardiomyopathy with implantable cardioverter-defibrillator (ICD) Left bundle branch block (LBBB) Orthostatic hypotension Pacemaker PVD (peripheral vascular disease) Surgical History H/O mitral valve replacement History of esophagogastroduodenoscopy (EGD) History of femoropopliteal bypass Hx of colonoscopy Hx of coronary artery bypass graft Social History Are you a primary special needs caregiver to a significant other at home: No Do you presently have visiting nurse or other home services: No Physical Exam Vital Signs: Last Vital Signs Pulse 104 H 05/11/23 10:38 Resp 14 05/11/23 10:38 BP 110/58 L 05/11/23 10:38 Pulse Ox 94 05/11/23 10:38 Oxygen Delivery Method Room Air 05/11/23 10:38 BMI result Body Mass Index 28.0 Assessment & Plan Assessment & Plan (1) Post laminectomy syndrome: Code(s): M96.1 - Postlaminectomy syndrome, not elsewhere classified (2) Spinal stenosis: Code(s): M48.00 - Spinal stenosis, site unspecified Qualifiers: Spinal region: lumbosacral Qualified Code(s): M48.07 - Spinal stenosis, lumbosacral region (3) Sacroiliitis: Code(s): M46.1 - Sacroiliitis, not elsewhere classified (4) Pain of both sacroiliac joints: Code(s): M53.3 - Sacrococcygeal disorders, not elsewhere classified Plan: Intrathecal pain pump trial Informed consent was explained to the patient. All questions were explained and answered. The patient was taken inside of the operating room where she was positioned prone on the operating table. Time-out was performed delineating patient's name and date of , correct site, side, the nature of the procedure, patient's allergy, All operating room staff and the patient were participating in OR time-out procedure. the patient's lower back was prepped with ChloraPrep and draped with sterile utility draped. Sterilely draped C-arm was brought over the operating field and sq picture of lumbar vertebrae were delineated on the screen. the target of needle insertion was chosen between L2 and L3 vertebrae. The projection of the right lamina of the L2 vertebra was chosen as the starting point of the injection. 22 gauge 3-1/2 inch Wittaker needle was inserted through the skin after skin wheal was raised with lidocaine 2%. The needle was directed to the L2-L3 interlaminar space. The advancement of the needle was performed on intermittent anterior posterior and lateral views. On anterior posterior view needle was positioned strictly in the midline. On the lateral view needle entered in the projection of the center of the spinal canal. At that moment the stylet was removed from the needle and clear flow CSF was detected in the needle hub. After that 1 mLof the solution containing trial medication Morphine 100 mcg was injected into the needle. After that needle was removed sterile dressing was applied. Patient tolerated procedure well. He was taken outside of the operating room to the recovery room where he recovered uneventfully. Plan Attempt to adjust his stimulation to cover his lower back axial pain resulted in no improvement. I offered this patient on recommendation of Dr. Huddleston to perform bilateral sacroiliac joint injection diagnostic. Unfortunately the pain of this patient was decrease less 40% after the procedure I cannot consider SI joint on the suggestion of Dr. Huddleston is his pain generator. Caudal MANDIE with catheter also resulted in minimal improvement immediately after procedure and no further improvement for the rest of the time. He read pain pump brochure and agree to go for trial of pain pump. He is currently not on any opioids. Orders: Orders FL guidance in treatment room Today G89.4 - Chronic pain syndrome Inge Gonzalez APRN, [employer] Medications: New naloxone 4 mg/actuation spray 1 dose into ONE nostril; alternate nostrils w each dose until help arrives 4 mg intranasal Q3M PRN 2 ea 5RF opioid overdose 1 day Jose Mederos MD Coding Level of Care Code Procedure Only Diagnoses Post laminectomy syndrome M96.1 Spinal stenosis of lumbosacral region M48.07 Spinal region: lumbosacral Sacroiliitis M46.1 Pain of both sacroiliac joints M53.3
[2023-05-11 07:41] VITALS: BP 120/58; PULSE 104; RESP 14; O2SAT 97; BMI 28.0
[2023-05-11 10:36] VITALS: BP 122/60; PULSE 94; RESP 16; O2SAT 95; BMI 28.0
[2023-05-11 10:38] VITALS: BP 110/58; PULSE 104; RESP 14; O2SAT 94
== END 2023-05-11 09:40 | disposition home or self-care (01) ==
LOC: HO.PMCPRC 07:36
PROVIDERS: PCP Family Medicine; Visit Provider Anesthesiology
DX: M46.1 Sacroiliitis, not elsewhere classified (principal); M48.07 Spinal stenosis, lumbosacral region; M96.1 Postlaminectomy syndrome, not elsewhere classified; M53.3 Sacrococcygeal disorders, not elsewhere classified
CPT/HCPCS: 62323

== ENCOUNTER 2023-05-13 08:51 | Outpatient (AMB) | payer MEDICARE, SELFPAY ==
--- NOTE | 2023-05-13 09:01 | MHC.OFFVIS ---
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 Mederos. Patient reports 70-80% pain relief for 18 hours with notable improvement in his functioning, day activities, sleep and mobility. Patient reports no side effects following Morphine trial but once again had urinary retention for over 12 hours. Patient reports good pain relief but cannot proceed with this due to significant urinary retention. Patient also reports more information on his previous trial with Dilaudid and falling several days due to low BP and today reports that he was actually evaluated at [facility]. Since last visit, patient obtained walker and reports more steadier ambulation with walker. He continues to endorse low back pain across his lower back with radiation into his buttocks and bilateral lateral hips. Previous SI joint injections provided him minimal pain relief. Pain is worse as soon as he gets up from bed in the morning and all through the day with walking, standing and prolonged sitting. Patient has history of L4-L5 posterior lumbar [place]body [place] [address] Huddleston. In 2019 he had screw removal, as this was thought to be the etiology of his pain. Denies any recent cough, cold, infection, fever, bladder or bowel dysfunction, saddle anesthesia or other significant changes in medical history since last office visit. PRIOR: Chris is on the phone today to discuss further treatment. 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 He received spinal cord stimulator Nevro for this condition. Although spinal cord stimulator helped his pain somewhat he is dissatisfied with the outcome. He went to his surgeon Dr. Huddleston who recommended to perform bilateral SI joint injection. Examined the patient 8 did find some signs of sacroiliac joint problem. However SI joint injection did not result in pain improvement. Less than 40% and the shorter than 6 hours. Therefore it is not his major pain generator. I offered him intrathecal drug delivery system pain pump and he decided to go for trial. We need to schedule him for psychological evaluation before the trial. Prior:? 1 year and half after the implant of spinal cord stimulator Waldoro.? He reports that spinal cord stimulator continues to work and help his axial pain in the central lumbar spine.? However now he reports pain aggravation at the area of sacral bone and lumbosacral junction.? He reports severe tenderness on palpation in the projection of the left sacroiliac joint more than the right sacroiliac joint as well as pain in the palpation of the left sacroiliac joint projection.? Jefe test is positive on the left and negative on the right.? Gaenslen test is positive bilaterally.? Melissa finger test is positive on the left.? She was examined by Dr. Huddleston a neurosurgeon who is treating patient in the past.? The patient was recommended to come back to pain management office and perform bilateral sacroiliac joint injection.? I agree with Dr. Huddleston and I will schedule patient for bilateral sacroiliac joint injection.? 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 Unfortunately that was not effective. History of progressive low back pain since 2018. Previously he had a L4-L5 posterior lumbar interbody [place] [address] Huddleston. In 2019 he had screw removal, as this was thought to be the etiology of his pain. Unfortunately, he states he is in constant pain.? His pain is exacerbated by sitting and standing.? His pain is alleviated by leaning forward or laying down. He denies any radicular leg pain or weakness. He denies any bowel or bladder incontinence. In the past he has had steroid injections, but he only had moderate pain relief for a few days. He reportedly completed physical therapy about a month ago with no improvement.? He had in the past acupuncture we did not resulted in pain improvement. . [facility] Medical History Orthostatic hypotension Left bundle branch block (LBBB) Ischemic cardiomyopathy with implantable cardioverter-defibrillator (ICD) CAD (coronary artery disease) PVD (peripheral vascular disease) High cholesterol Hypertension Arthritis Back pain Anemia Hiatal hernia GERD (gastroesophageal reflux disease) Hx of deep venous thrombosis Diabetes COPD (chronic obstructive pulmonary disease) CKD (chronic kidney disease) CHF (congestive heart failure) Pacemaker Surgical History Hx of colonoscopy History of esophagogastroduodenoscopy (EGD) History of femoropopliteal bypass Hx of coronary artery bypass graft H/O mitral valve replacement Social History Are you a primary child caregiver to a significant other at home: No Do you presently have visiting nurse or other home services: No Review of Systems Const All systems reviewed & are unremarkable except as noted in HPI and below ENT Reports Normal hearing present Neuro Reports Normal hearing present, Denies Abnormal speech present and Denies confusion Psych Denies confusion Physical Exam Vital Signs: Last Vital Signs Pulse 101 H 05/13/23 09:05 BP 124/61 05/13/23 09:05 Pulse Ox 97 05/13/23 09:05 Oxygen Delivery Method Room Air 05/13/23 09:05 BMI result Body Mass Index 28.0 Const General: cooperative, healthy appearing, no acute distress, alert, awake and well groomed; No confusion Nutritional Appearance: average body habitus and well nourished Orientation/consciousness: patient oriented x3 and No confusion Limitations: ambulation with walker HEENT Head: Yes normal to inspection, Yes normocephalic and No scalp tenderness Ears: hearing grossly normal bilaterally (hearing aids present) Face and sinus: Yes normal facial exam and Yes face symmetric Eyes General: appearance normal, both eyes and all related structures Neck Neck: Yes normal visual inspection, Yes no lymphadenopathy, Yes supple and No anterior neck swelling Resp Effort & Inspection: normal respiratory effort, able to speak in complete sentences, no audible wheezes, no cough and symmetric chest movement Cardio Jugular venous distension: no JVD GI Inspection: Yes normal to inspection Palpation (GI): Soft to palpation and no guarding Back/Spine/Pelvis Cervical Spine: cervical ROM normal and No Cervical spine tenderness Thoracic/Lumbar Spine: Thoracic/lumbar spine scar(s) (well healed lumbar incision), Lasegue's sign positive on the right and diffuse, pain with thoraco-lumbar ROM, paraspinal muscle tenderness on the right greater than left, thoraco-lumbar ROM limited (limited ROM with forward flexion/dorsiflexion), No thoracic spinal tenderness, lumbar spinal tenderness at L4 and at L5 and straight leg raise positive right at 40 degrees Pelvis: buttock tenderness Sacroiliac joints: bilaterally (+Melissa, +Jefe's) tender to palpation Skin General skin exam: ecchymosis (posterior right lower neck with healing bruising) Trauma: no lacerations or abrasions Wounds: no wounds Neuro General: patient oriented x3 and No confusion Cranial nerves: Yes Normal hearing present Speech: No Abnormal speech present Gait exam (Neuro): Normal gait present Motor exam (neuro): 5/5 motor strength present throughout Extrem General: Yes capillary refill normal and Yes no pedal edema Psych Appearance: grossly normal and well kempt Speech and movement: Clear speech present Affect: normal affect Thought process: Normal thought process present Insight: Fair insight present (Psych) Judgement: Good judgement present (Psych) Results Reviewed Results Reviewed: Per Dr. Huddleston's office noted 09/24/22: Assessment & Plan Assessment & Plan (1) Chronic pain syndrome: Code(s): G89.4 - Chronic pain syndrome (2) Post laminectomy syndrome: Code(s): M96.1 - Postlaminectomy syndrome, not elsewhere classified (3) Spinal stenosis: Code(s): M48.00 - Spinal stenosis, site unspecified Qualifiers: Spinal region: lumbosacral Qualified Code(s): M48.07 - Spinal stenosis, lumbosacral region (4) History of recent fall: Code(s): Z91.81 - History of falling Plan Patient is status post second ITDD trial with Morphine with good results but significant urinary retention. He denied any other side effects he experienced with Dilaudid trial. Patient reports gradually worsening pain since fall in February. Patient now ambulates with walker. His pain is mostly at low back with radiation to his buttocks and lateral hips bilaterally. SIJ injections were minimally effective. Patient was last seen by Dr. Huddleston on 09/24/22. We will proceed with repeating CT scan of his lumbar spine prior to any further interventional treatments. All questions and concerns have been answered and patient agreed with the plan. Follow up for CT scan results with Dr. Mederos and sooner if needed. Orders: Orders CT lumbar spine wo/w IV con Today G89.4 - Chronic pain syndrome, M48.00 - Spinal stenosis, site unspecified, M96.1 - Postlaminectomy syndrome, not elsewhere classified, Z91.81 - History of falling Coding Level of Care Code Est Pt Level 4 (92086) Diagnoses Chronic pain syndrome G89.4 Post laminectomy syndrome M96.1 Spinal stenosis of lumbosacral region M48.07 Spinal region: lumbosacral History of recent fall Z91.81
[2023-05-13 09:05] VITALS: BP 124/61; PULSE 101; O2SAT 97; BMI 28.0
== END 2023-05-13 09:24 | disposition home or self-care (01) ==
PROVIDERS: PCP Family Medicine; Visit Provider Nurse Practitioner Family
DX: G89.4 Chronic pain syndrome (principal); M96.1 Postlaminectomy syndrome, not elsewhere classified; M48.07 Spinal stenosis, lumbosacral region; Z91.81 History of falling
CPT/HCPCS: 99213

== ENCOUNTER → 2023-05-13 08:51 | Outpatient (BNVA) | payer MEDICARE, SELFPAY | PROVIDERS: PCP Family Medicine; Visit Provider Nurse Practitioner Family | DX: G89.4 Chronic pain syndrome (principal); M96.1 Postlaminectomy syndrome, not elsewhere classified; M48.07 Spinal stenosis, lumbosacral region; R33.9 Retention of urine, unspecified; Z91.81 History of falling | CPT/HCPCS: 99212 ==

== ENCOUNTER 2023-06-10 07:51 | Outpatient (REF) | payer MEDICARE, SELFPAY ==
--- NOTE | ~2023-06-10 | CT_ITS ---
CT LUMBAR SPINE WITHOUT AND WITH CONTRAST CLINICAL INFORMATION: Spinal stenosis. COMPARISON: None available per TECHNIQUE: A multidetector CT acquisition of the lumbar spine is obtained without and following the administration of 80 mL of Omnipaque 350 intravenous contrast without complication contrast. This CT examination was performed using dose optimization techniques as appropriate, variously including the following: *Automated exposure control *Adjustment of mA and/or kV according to patient size (this includes techniques or standardized protocols for targeted exams where dose is matched to indication/reason for exam; i.e. extremities or head) *Use of iterative reconstruction technique FINDINGS: Postoperative changes following right-sided posterior instrumented fusion at the L2-L4 levels and interbody graft placement at L4-L5. Surgical hardware consists of right-sided transpedicular screws with a vertical connecting abad. The surgical hardware is intact and there is no evidence of hardware loosening. There is also a spinal stimulator device is partially imaged with the electrodes extending through the T12-L1 interlaminar space extending superiorly beyond the limits of this study along the dorsal thecal sac. There are 5 nonrib-bearing lumbar-type vertebral bodies. There is grade 1 retrolisthesis of L1 on L2, L2 on L3, and L3 on L4. There is grade 1 anterolisthesis of L5 on S1. There is diffuse osteopenia. There are no acute fractures and there are no acute subluxations. The L4-L5 facets are solidly fused bilaterally and there is solid interbody bone fusion mass at L4-L5. There is severe disc volume loss at L2-L3. There is a leftward convex scoliotic curvature of the lumbar spine. There is extensive aortoiliac atherosclerotic calcification. Bilateral perinephric stranding. L1-L2: Small annular disc bulge and mild bilateral facet arthropathy. No appreciable central canal stenosis. Mild foraminal encroachment bilaterally. L2-L3: There is grade 1 retrolisthesis. Disc osteophyte and bilateral facet arthropathy and ligamentum flavum thickening likely result in mild to moderate narrowing of the central canal. Disc osteophyte and facet arthropathy result in mild to moderate bilateral foraminal encroachment and disc osteophyte likely results in mass effect on the extraforaminal nerve roots bilaterally. L3-L4: There is a diffuse annular disc bulge and there is severe bilateral facet arthropathy and ligamentum flavum thickening. There is likely mild narrowing of the central canal. Mild to moderate bilateral foraminal encroachment with disc osteophyte contacting the extraforaminal L3 nerve roots bilaterally. L4-L5: Postoperative changes following laminectomy. Interbody graft in place. No appreciable central canal stenosis. Osteophytic ridging and facet arthropathy result in mild bilateral foraminal encroachment. Peripherally calcified right paracentral disc indents the right ventral thecal sac. L5-S1: Slight grade 1 anterolisthesis. Annular disc bulge and severe bilateral facet arthropathy resulting in mild bilateral foraminal encroachment. CT/CT lumbar spine wo/w IV con IMPRESSION: - Postoperative changes following right-sided posterior instrumented fusion at the L2-L4 levels and interbody graft placement at L4-L5. The surgical hardware is intact and there is no evidence of hardware loosening. There is also a spinal stimulator device is partially imaged with the electrodes extending through the T12-L1 interlaminar space extending superiorly beyond the limits of this study along the dorsal thecal sac. - Advanced multilevel lumbar spondylosis. Grade 1 retrolisthesis of L2 on L3. Advanced facet arthropathy throughout the entire lumbar spine. At L2-L3, grade 1 retrolisthesis and spondylitic changes result in suspected mild to moderate central canal stenosis. No definite severe central canal stenosis within the lumbar spine. Lateral disc osteophyte protrusions result in mass effect on the extraforaminal nerve roots bilaterally at the L2-L3 and L3-L4 levels. - Extensive aortoiliac atherosclerotic calcification.
[2023-06-10] MEDS: iohexoL 350 MG/ML 100 ML INFUS..BTL IV (08:43)
[2023-06-10 10:38] LABS: Creatinine POC 0.7 mg/dL (0.5-1.4); GFR POC 60
== END 2023-06-10 07:52 | disposition home or self-care (01) ==
LOC: HO.CT 07:51
PROVIDERS: PCP Family Medicine; Visit Provider Nurse Practitioner Family
DX: M48.00 Spinal stenosis, site unspecified (principal); M96.1 Postlaminectomy syndrome, not elsewhere classified; G89.4 Chronic pain syndrome; Z91.81 History of falling
CPT/HCPCS: 72133; 82565; Q9967

== ENCOUNTER 2023-06-25 08:20 | Outpatient (AMB) | payer MEDICARE, SELFPAY ==
--- NOTE | 2023-06-25 08:22 | MHC.OFFVIS ---
Intake Vital Signs 06/25/23 08:25 Height 5 ft 8 in Weight 179 lb BMI 27.2 BP 155/70 H Blood Pressure Location Rt brachial Position Sitting Pulse 79 Pulse Source Pulse Oximeter Pulse Oximetry (%) 96 Oxygen Delivery Method Room Air Intake Visit Reasons: Follow Up / Results of CT Scan/Confirmed Intake Note: Pain today 09/08 Armored Car Guard And Driver Required: No Accompanied by: Spouse Allergies No Known Allergies Allergy (Verified 06/25/23 08:26) HPI HPI Comments History of Present Illness Details Patient presents today for follow up to discuss recent lumbar spine CT scan results. He reports his low back pain has significanly improved since recent Nevro 2 adjustments, last being about 1 week ago. He rates his pain at 09/08 and is very content with recent SCS program adjustments. CT scan results reviewed with patient and his in greater detail and are noted below. Patient reports he was admitted to [facility] 3 weeks ago with orthostatic hypotension and severe anemia. He received 2 units of blood transfusion and has been feeling much better. Denies any recent cough, cold, infection, fever, weight loss, bladder or bowel dysfunction, or saddle anesthesia. PRIOR: Patient presents today to assess response to ITDD Pain pump trial with Morphine 100 mcg on 05/11/[address] Mederos. Patient reports 70-80% pain relief for 18 hours with notable improvement in his functioning, day activities, sleep and mobility. Patient reports no side effects following Morphine trial but once again had urinary retention for over 12 hours. Patient reports good pain relief but cannot proceed with this due to significant urinary retention. Patient also reports more information on his previous trial with Dilaudid and falling several days due to low BP and today reports that he was actually evaluated at [facility]. Since last visit, patient obtained walker and reports more steadier ambulation with walker. He continues to endorse low back pain across his lower back with radiation into his buttocks and bilateral lateral hips. Previous SI joint injections provided him minimal pain relief. Pain is worse as soon as he gets up from bed in the morning and all through the day with walking, standing and prolonged sitting. Patient has history of L4-L5 posterior lumbar interbody [place] [address] Huddleston. In 2019 he had screw removal, as this was thought to be the etiology of his pain. Denies any recent cough, cold, infection, fever, bladder or bowel dysfunction, saddle anesthesia or other significant changes in medical history since last office visit. PRIOR: Chris is on the phone today to discuss further treatment. 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 He received spinal cord stimulator Nevro for this condition. Although spinal cord stimulator helped his pain somewhat he is dissatisfied with the outcome. He went to his surgeon Dr. Huddleston who recommended to perform bilateral SI joint injection. Examined the patient 8 did find some signs of sacroiliac joint problem. However SI joint injection did not result in pain improvement. Less than 40% and the shorter than 6 hours. Therefore it is not his major pain generator. I offered him intrathecal drug delivery system pain pump and he decided to go for trial. We need to schedule him for psychological evaluation before the trial. Prior:? 1 year and half after the implant of spinal cord stimulator Nevro.? He reports that spinal cord stimulator continues to work and help his axial pain in the central lumbar spine.? However now he reports pain aggravation at the area of sacral bone and lumbosacral junction.? He reports severe tenderness on palpation in the projection of the left sacroiliac joint more than the right sacroiliac joint as well as pain in the palpation of the left sacroiliac joint projection.? Jefe test is positive on the left and negative on the right.? Gaenslen test is positive bilaterally.? Melissa finger test is positive on the left.? She was examined by Dr. Huddleston a neurosurgeon who is treating patient in the past.? The patient was recommended to come back to pain management office and perform bilateral sacroiliac joint injection.? I agree with Dr. Huddleston and I will schedule patient for bilateral sacroiliac joint injection.? 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 Unfortunately that was not effective. History of progressive low back pain since 2018. Previously he had a L4-L5 posterior lumbar interbody fusion in [address] Huddleston. In 2019 he had screw removal, as this was thought to be the etiology of his pain. Unfortunately, he states he is in constant pain.? His pain is exacerbated by sitting and standing.? His pain is alleviated by leaning forward or laying down. He denies any radicular leg pain or weakness. He denies any bowel or bladder incontinence. In the past he has had steroid injections, but he only had moderate pain relief for a few days. He reportedly completed physical therapy about a month ago with no improvement.? He had in the past acupuncture we did not resulted in pain improvement. . [facility] Medical History Orthostatic hypotension Left bundle branch block (LBBB) Ischemic cardiomyopathy with implantable cardioverter-defibrillator (ICD) CAD (coronary artery disease) PVD (peripheral vascular disease) High cholesterol Hypertension Arthritis Back pain Anemia Hiatal hernia GERD (gastroesophageal reflux disease) Hx of deep venous thrombosis Diabetes COPD (chronic obstructive pulmonary disease) CKD (chronic kidney disease) CHF (congestive heart failure) Pacemaker Surgical History Hx of colonoscopy History of esophagogastroduodenoscopy (EGD) History of femoropopliteal bypass Hx of coronary artery bypass graft H/O mitral valve replacement Social History Are you a primary medicare nurse to a significant other at home: No Do you presently have visiting nurse or other home services: No Review of Systems Const All systems reviewed & are unremarkable except as noted in HPI and below Card Denies chest pain, Denies lightheadedness and Denies dyspnea on exertion Resp Denies cough and Denies dyspnea on exertion GI Denies abdominal pain, Denies melena, Denies hematochezia, Denies fecal incontinence, Denies diarrhea, Denies nausea and Denies vomiting Physical Exam Vital Signs: Last Vital Signs Pulse 79 06/25/23 08:25 BP 155/70 H 06/25/23 08:25 Pulse Ox 96 06/25/23 08:25 Oxygen Delivery Method Room Air 06/25/23 08:25 BMI result Body Mass Index 27.2 General: Appears afebrile. Alert and oriented. Mood and affect appropriate. Follows and participates in conversation appropriately. Respiratory effort is unlabored. No cough. Able to transition from sit to stand with assistance of walker. Ambulates with bilaterally normal heel strike and toe off. Mild antalgic gait, no limping. Results Reviewed Results Reviewed: CT LUMBAR SPINE WITHOUT AND WITH CONTRAST 06/10/23 CLINICAL INFORMATION: Spinal stenosis. FINDINGS: Postoperative changes following right-sided posterior instrumented fusion at the L2-L4 levels and interbody graft placement at L4-L5. Surgical hardware consists of right-sided transpedicular screws with a vertical connecting abad. The surgical hardware is intact and there is no evidence of hardware loosening. There is also a spinal stimulator device is partially imaged with the electrodes extending through the T12-L1 interlaminar space extending superiorly beyond the limits of this study along the dorsal thecal sac. There are 5 nonrib-bearing lumbar-type vertebral bodies. There is grade 1 retrolisthesis of L1 on L2, L2 on L3, and L3 on L4. There is grade 1 anterolisthesis of L5 on S1. There is diffuse osteopenia. There are no acute fractures and there are no acute subluxations. The L4-L5 facets are solidly fused bilaterally and there is solid interbody bone fusion mass at L4-L5. There is severe disc volume loss at L2-L3. There is a leftward convex scoliotic curvature of the lumbar spine. There is extensive aortoiliac atherosclerotic calcification. Bilateral perinephric stranding. L1-L2: Small annular disc bulge and mild bilateral facet arthropathy. No appreciable central canal stenosis. Mild foraminal encroachment bilaterally. L2-L3: There is grade 1 retrolisthesis. Disc osteophyte and bilateral facet arthropathy and ligamentum flavum thickening likely result in mild to moderate narrowing of the central canal. Disc osteophyte and facet arthropathy result in mild to moderate bilateral foraminal encroachment and disc osteophyte likely results in mass effect on the extraforaminal nerve roots bilaterally. L3-L4: There is a diffuse annular disc bulge and there is severe bilateral facet arthropathy and ligamentum flavum thickening. There is likely mild narrowing of the central canal. Mild to moderate bilateral foraminal encroachment with disc osteophyte contacting the extraforaminal L3 nerve roots bilaterally. L4-L5: Postoperative changes following laminectomy. Interbody graft in place. No appreciable central canal stenosis. Osteophytic ridging and facet arthropathy result in mild bilateral foraminal encroachment. Peripherally calcified right paracentral disc indents the right ventral thecal sac. L5-S1: Slight grade 1 anterolisthesis. Annular disc bulge and severe bilateral facet arthropathy resulting in mild bilateral foraminal encroachment. IMPRESSION: - Postoperative changes following right-sided posterior instrumented fusion at the L2-L4 levels and interbody graft placement at L4-L5. The surgical hardware is intact and there is no evidence of hardware loosening. There is also a spinal stimulator device is partially imaged with the electrodes extending through the T12-L1 interlaminar space extending superiorly beyond the limits of this study along the dorsal thecal sac. - Advanced multilevel lumbar spondylosis. Grade 1 retrolisthesis of L2 on L3. Advanced facet arthropathy throughout the entire lumbar spine. At L2-L3, grade 1 retrolisthesis and spondylitic changes result in suspected mild to moderate central canal stenosis. No definite severe central canal stenosis within the lumbar spine. Lateral disc osteophyte protrusions result in mass effect on the extraforaminal nerve roots bilaterally at the L2-L3 and L3-L4 levels. - Extensive aortoiliac atherosclerotic calcification. Assessment & Plan Assessment & Plan (1) Chronic pain syndrome: Code(s): G89.4 - Chronic pain syndrome (2) Post laminectomy syndrome: Code(s): M96.1 - Postlaminectomy syndrome, not elsewhere classified (3) Spinal stenosis: Code(s): M48.00 - Spinal stenosis, site unspecified Qualifiers: Spinal region: lumbosacral Qualified Code(s): M48.07 - Spinal stenosis, lumbosacral region Plan CT scan lumbar spine reviewed with patient and , results are noted above. The surgical hardware is intact and there is no evidence of hardware loosening. Findings consistent with multilevel degenerative changes without definite severe central canal stenosis within the lumbar spine. Additional changes noted for extensive aortoiliac atherosclerotic calcification- a copy of report sent to patient's PCP to further evaluate this. Patient has improvement in his low back pain symptoms with recent SCS re-programming with [employer] rep. All questions and concerns have been answered and patient agreed with the plan. Follow up as needed. Coding Level of Care Code Est Pt Level 3 (68416) Diagnoses Chronic pain syndrome G89.4 Post laminectomy syndrome M96.1 Spinal stenosis of lumbosacral region M48.07 Spinal region: lumbosacral
[2023-06-25 08:25] VITALS: BP 155/70; PULSE 79; O2SAT 96; BMI 27.2
== END 2023-06-25 08:50 | disposition home or self-care (01) ==
PROVIDERS: PCP Family Medicine; Visit Provider Nurse Practitioner Family
DX: G89.4 Chronic pain syndrome (principal); M96.1 Postlaminectomy syndrome, not elsewhere classified; M48.07 Spinal stenosis, lumbosacral region
CPT/HCPCS: 99213

== ENCOUNTER → 2023-06-25 08:20 | Outpatient (BNVA) | payer MEDICARE, SELFPAY | PROVIDERS: PCP Family Medicine; Visit Provider Nurse Practitioner Family | DX: M96.1 Postlaminectomy syndrome, not elsewhere classified (principal); M48.07 Spinal stenosis, lumbosacral region; G89.4 Chronic pain syndrome | CPT/HCPCS: 99212 ==

== ENCOUNTER 2025-01-19 11:20 | Outpatient (AMB) | payer MEDICARE, SELFPAY ==
--- OUTSIDE RECORDS SUMMARY | 2025-01-19 11:23 | XMS_ITS | Clinical Summary ---
Author Organization Formerly [facility] Address [address] [place] [address] Care Team Providers Care Courtesy Car Driver Name Role Phone Ryan Mayberry MD Primary Care Provider [phone] Social History Tobacco Use Types Packs/Day Years Used Date Smoking Tobacco: Never Assessed Sex and Gender Information Value Date Recorded Sex Assigned at Not on file Gender Identity Not on file Sexual Orientation Not on file Plan of Treatment Health Maintenance Due Date Last Done Comments COVID-19 Vaccine (#1) 01/26/1941 Depression Screening 1954 Preventative Health Evaluation 1960 DTap / Tdap / Td (1 - Tdap) 1961 Shingrix-Zoster Vaccine (1 of 2) 1992 Fall Risk Assessment 2007 Pneumococcal Vaccine (2 of 2 - PCV) 05/12/2014 05/12/2013 RSV Adult > 60+ Yrs or Pregn ant (1 - 1-dose 75+ series) 2017 Influenza Vaccine (#1) 2024 06/27/2019 Hepatitis B Vaccines Aged Out No long er eligible based on patient's age to complete this topic RSV Ped < 20 months Aged Out No longe r eligible based on patient's age to complete this topic Care Teams Courtesy Car Driver Relationship Specialty Start Date End Date Ryan Mayberry MD [address] [place] [address] PCP - General Family Medicine 09/09/18
[2025-01-19 11:25] VITALS: BP 94/56; PULSE 55; O2SAT 81; BMI 27.2
--- NOTE | 2025-01-19 11:25 | HO.NEPHOV ---
Vital Signs 01/19/25 11:25 Height 5 ft 8 in Weight 179 lb BMI 27.2 BP 94/56 L Blood Pressure Location Rt brachial Position Sitting Pulse 55 Pulse Source Pulse Oximeter Pulse Oximetry (%) 81 L Oxygen Delivery Method Room Air Intake Visit Reasons: ENP: CKD/acute component/Urgent referral per PCP Dietetics Teacher Required: No Accompanied by: Spouse Allergies No Known Allergies Allergy (Verified 01/19/25 11:27) HPI Comments Details: 84-year-old gentleman with past medical history of significant vascular disease including CAD status post CABG, ischemic cardiomyopathy, PVD status post bypass graft, COPD, SOFI, peripheral neuropathy, possible dementia is here to establish care. He is here with his Debra Has urine retention problem, has enlarged prostrate [facility] Medical History (Updated 01/19/25 @ 12:05 by Stephon Briones MD) Orthostatic hypotension Left bundle branch block (LBBB) Ischemic cardiomyopathy with implantable cardioverter-defibrillator (ICD) CAD (coronary artery disease) PVD (peripheral vascular disease) High cholesterol Hypertension Arthritis Back pain Anemia Hiatal hernia GERD (gastroesophageal reflux disease) Hx of deep venous thrombosis Diabetes COPD (chronic obstructive pulmonary disease) CKD (chronic kidney disease) CHF (congestive heart failure) Pacemaker Surgical History Hx of colonoscopy History of esophagogastroduodenoscopy (EGD) History of femoropopliteal bypass Hx of coronary artery bypass graft H/O mitral valve replacement Social History Are you a primary career technical supervisor to a significant other at home: No Do you presently have visiting nurse or other home services: No Comment: pt states has passes out because of low blood pressures Review of Systems Const Details: Const Denies body aches, Denies chills, Denies excessive sweating and Denies fatigue Eyes Denies blurry vision and Denies change in vision ENT Denies bleeding gums and Denies change in voice Card Denies chest pain and Denies leg ulcers Resp Denies cough and Denies excessive phlegm production GI Denies abdominal pain and Denies bloating Denies hematuria, Denies urinary frequency and Denies difficulty voiding, night time voiding 3-4 times Musc Denies abnormal gait Neuro Denies Neuro-related abnormal movements, frequent falls last was 4 months ago and Denies behavioral changes Psych Denies behavioral changes and Denies change in appetite Endo Denies change in body appearance, Denies cold intolerance, Denies excessive sweating and Denies fatigue Physical Exam Vital Signs: Last Vital Signs Pulse 55 01/19/25 11:25 BP 94/56 L 01/19/25 11:25 Pulse Ox 81 L 01/19/25 11:25 Oxygen Delivery Method Room Air 01/19/25 11:25 BMI result Body Mass Index 27.2 General: elderly pleasant male accompanied by his , Not in any acute distress, comfortable, sitting on the chair Nutritional Appearance: well nourished and overweight Eyes: appearance normal, both eyes and all related structures; Alignment and Position: alignment normal and position normal Neck: No lymphadenopathy, no thyromegaly Resp: bilateral air entry equal, no added sounds present Cardio: Regular rate, regular rhythm; Heart sounds: S1 normal heart sound present and S2 normal heart sound present, no edema GI: soft, nontender, no guarding, no hepatosplenomegaly : bladder normal to inspection, bladder normal to palpation, no renal angle tenderness Skin: no rashes or lesions noted and elasticity normal Neuro: oriented to person, oriented to place, oriented to time and moves all extremities Results Reviewed Nephrology Results: No Data to Display Assessment & Plan Assessment & Plan (1) CKD (chronic kidney disease): Comment: related to medications Code(s): N18.9 - Chronic kidney disease, unspecified Category: Medical (2) Metabolic acidosis: Code(s): E87.20 - Acidosis, unspecified Category: Medical Plan Chronic kidney disease stage IIIa possibly secondary to significant vascular disease - TTE done on 09/03/2023 showed slightly reduced LV systolic function, has a pacer/ICD and also Watchman device in place and some evidence of pulmonary hypertension - creatinine 1.3 , GFR 43 in 12/27/2024 - we will get urine protein creatinine ratio and Urinalysis - Renal ultrasound showed 11.4 cm right kidney, 11.7 cm left kidney, no obstruction - avoid nephrotoxic medications not limited to NSAIDs, contrast etc. - importance of diet, weight loss, adequate blood pressure control, stopped smoking we will explained to patient - continue Farxiga, valsartan would provide some renal protection. Hold valsartan if the systolic blood pressures are less than 100 at home - we will get calcium, phos, vitamin-D and PTH levels - encourage adequate fluid intake Acid-base disorder: - has metabolic acidosis, bicarb 20 - we will start on oral Bicitra Hypertension: - blood pressures are well controlled, seen in cardiology clinic on 01/15/2025 when his BP was 125/76 - target blood pressures less than 130 systolic - continue metoprolol and spironolactone Total time spent in the clinic is about 40minutes mostly on reviewing the medical records, coordinating care, documentation, counseling the patient, 20 minutes on interaction with the patient, 10 minutes on chart review 10 minutes on documenting the encounter. Orders: Orders Electrolytes Today N18.9 - Chronic kidney disease, unspecified Creatinine Today N18.9 - Chronic kidney disease, unspecified Calcium Today N18.9 - Chronic kidney disease, unspecified AMB Urinalysis Auto Microscop. Today N18.9 - Chronic kidney disease, unspecified Microalbumin, Random (w Creat) Today N18.9 - Chronic kidney disease, unspecified Total Protein Urine Random Today N18.9 - Chronic kidney disease, unspecified Phosphorus Today N18.9 - Chronic kidney disease, unspecified Vitamin D 25-OH Total Today N18.9 - Chronic kidney disease, unspecified Parathyroid Hormone Intact Today N18.9 - Chronic kidney disease, unspecified Blood Urea Nitrogen Today N18.9 - Chronic kidney disease, unspecified Creatinine Urine Today N18.9 - Chronic kidney disease, unspecified Coding Level of Care Code New Pt Level 4 (43850) Diagnoses CKD (chronic kidney disease) N18.9 Metabolic acidosis E87.20
== END 2025-01-19 11:56 | disposition home or self-care (01) ==
LOC: HO.HKA 11:20
PROVIDERS: PCP Family Medicine; Visit Provider Internal Medicine Critical Care Medicine
DX: N18.9 Chronic kidney disease, unspecified (principal); E87.20 Acidosis, unspecified
CPT/HCPCS: 99204

== ENCOUNTER → 2025-01-19 11:20 | Outpatient (BNVA) | payer MEDICARE, SELFPAY | PROVIDERS: PCP Family Medicine; Visit Provider Internal Medicine Critical Care Medicine | DX: Z13.89 Encounter for screening for other disorder (principal) | CPT/HCPCS: 99202 ==

== ENCOUNTER 2025-01-19 12:01 | Outpatient (REF) | payer MEDICARE, SELFPAY ==
[2025-01-19 14:10] LABS: Anion Gap 16 (12-20); Blood Urea Nitrogen 23 mg/dL (9-16); Calcium 10.2 mg/dL (8.4-10.2); Carbon Dioxide 27 mmol/L (22-29); Chloride 102 mmol/L (96-108); Estimated Glomerular Filt Rate 45; Phosphorus 2.6 mg/dL (2.7-4.5); Potassium 4.3 mmol/L (3.3-5.1); Sodium 141 mmol/L (135-145)
[2025-01-19 14:12] LABS: Creatinine Urine 32.98 mg/dL; Microalbum/Creatinine Ratio Ur 327.4 ug/mg cr (<30); Total Protein Urine Random 39 mg/dL (<12)
[2025-01-19 14:33] LABS: Vitamin D 25-OH Total 43.5 ng/mL (>30)
== END 2025-01-19 12:02 | disposition home or self-care (01) ==
LOC: HO.10HDL 12:01
PROVIDERS: Visit Provider Internal Medicine Critical Care Medicine
DX: N18.9 Chronic kidney disease, unspecified (principal)
CPT/HCPCS: 36415; 80051; 82043; 82306; 82310; 82565; 82570; 83970; 84100; 84156; 84520

== ENCOUNTER 2025-04-06 09:25 | Outpatient (AMB) | payer MEDICARE, SELFPAY ==
--- OUTSIDE RECORDS SUMMARY | 2025-04-06 09:31 | XMS_ITS | Clinical Summary ---
Author Organization [facility] Address [address] [place] [address] Care Team Providers Care Facing Cutting Machine Operator Name Role Phone Ryan Mayberry MD Primary Care Provider [phone] Social History Tobacco Use Types Packs/Day Years [...] 1-dose 75+ series) 2017 Influenza Vaccine (#1) 2025 06/27/2019 Hepatitis B Vaccines Aged Out No long er eligible based on patient's age to complete this topic RSV Ped < 20 months Aged Out No longe r eligible based on patient's age to complete this topic Care Teams Facing Cutting Machine Operator Relationship Specialty Start Date End Date Ryan Maybrery MD [address] [place] [address] PCP - General Family Medicine 09/09/18
--- OUTSIDE RECORDS SUMMARY | 2025-04-06 09:31 | XMS_ITS | Clinical Summary ---
Author Organization [employer] [facility] Address [address] [place] [address] Care Team Providers Care Service Aide Name Role Phone Ryan Mayberry DO Primary Care Provider [phone] Surgical History Surgery Date Site/Laterality Comments CORONARY ARTERY BYPASS GRAFT 05/11/2013 PROCEDURE: HISTORICAL CABG OTHER SURGICAL HISTORY 11/05/2015 PROCEDURE: AICD, DUAL CHAMBER UPPER GASTROINTESTINAL ENDOSCOPY 05/05/2018 PROCEDURE: SD UPPER GI ENDOSCOPY PERFORMED COLONOSCOPY 05/05/2018 PROCEDURE: HISTORICAL COLONOSCOPY OTHER SURGICAL HISTORY 05/15/2013 PROCEDURE: HISTORICAL MITRAL VALVE REPL BACK SURGERY 10/08/2014 PROCEDURE: HISTORICAL BACK SURGERY; COMMENT: Lumbar spinal fusion OTHER SURGICAL HISTORY 12/20/2012 Right PROCEDURE: SD TEAEC W/WO PATCH GRAFT COMMON FEMORAL TOTAL KNEE ARTHROPLASTY 01/30/2008 Left PROCEDURE: HISTORICAL TOTAL KNEE REPLACE Medical History Medical History Date Comments GERD (gastroesophageal reflux disease) 04/11/2018 DX:GERD (gastroesophageal reflux disease); COMMENT: Ken's Esophagus Hypertension 03/08/2018 DX:Hypertension DM (diabetes mellitus), type 2 with renal complications (CMS/HCC V24, CMS/HCC V28) 03/08/2018 DX:DM (diabetes mellitus), t ype 2 with renal complications (HCC) Allergic rhinitis 11/22/2019 DX:Allergic rh initis Colon polyp 11/22/2019 DX:Colon polyp Biventricular ICD (implantab le cardioverter-defibrillator) in place 11/22/2019 DX:Biventricular ICD (implantable cardioverter-defibrillator) in place History of DVT (deep vein thrombosis) 11/22/2019 DX:History of DVT (deep vein thrombosis) Pulmonary HTN (CMS/HCC V24, CMS/HCC V28) 11/22/2019 DX:Pulmonary HTN (HCC) S/P MVR (mitral valve replacement) 03/08/2018 DX:S/P MVR (mitral valve replacement); COMMENT: 2012 Cardiomyopathy ([facility] [place], [facility] V28) 11/22/2019 DX:Cardiomyopathy ([facility]); COM MENT: EF 16 % CHF (congestive heart failur e) ([facility] [place]24, [facility] V28) 03/08/2018 DX:CHF (congestive heart fa ilure) ([facility]) Total knee replacement status 11/22/2019 DX :Total knee replacement status; COMMENT: Left CAD (coronary artery disease) 03/08/2018 DX :CAD (coronary artery disease); COMMENT: CABG Chronic obstructive pulmonar y disease ([facility] V24, [facility] V28) 03/08/2018 DX:Chronic obstructive pulm onary disease ([facility]) Diverticulosis of colon 03/08/2018 DX:Diver ticulosis of colon Hyperlipidemia 03/08/2018 DX:Hyperlipidemi a Elevated PSA 11/22/2019 DX:Elevated PSA Macrocytic anemia 11/22/2019 DX:Macrocytic anemia Proteinuria 03/08/2018 DX:Proteinuria Peripheral vascular disease ([facility] [place]24) 03/08/2018 DX:Peripheral vascular disea se ([facility]) Osteoarthritis 11/22/2019 DX:Osteoarthriti s; COMMENT: SI joints Chronic kidney disease 11/22/2019 DX:Chroni c kidney disease DM (diabetes mellitus), type 2 with peripheral vascular complications ([facility] [place], [facility] V28) 11/22/2019 DX:DM (diabetes mellitus), type 2 with peripheral vascular complications ([facility]) Social History Tobacco Use Types Packs/Day Years Used Date Smoking Tobacco: Former Smokeless Tobacco: Never Alcohol Use Standard Drinks/Week Comments Yes 0 (1 standard drink = 0.6 oz pur e alcohol) Sex and Gender Information Value Date Recorded Sex Assigned at Not on file Legal Sex Male 1:21 AM EST Gender Identity Not on file Sexual Orientation Not on file Obstetrics History Last Filed Vital Signs Vital Sign Reading Time Taken Comments Blood Pressure 112/62 04/08/2022 3:34 PM EDT Sit ting L Arm Pulse 74 04/08/2022 3:34 PM EDT Temperature - - Respiratory Rate - - Oxygen Saturation - - Inhaled Oxygen Concentration - - Weight 84.8 kg (187 lb) 09/24/2022 3:43 PM EST Height 172.7 cm (5' 8 ) 07/03/2022 10:16 AM EDT Body Mass Index 28.43 07/03/2022 10:16 AM EDT Plan of Treatment Health Maintenance Due Date Last Done Comments Diabetes: Annual GFR (Glomerular Filtration Rate) 1942 Diabetes: Annual Foot Exam 1952 Diabetes: Annual Retina Eye Exam 1952 DTaP,Tdap,and Td Vaccines (1 - Tdap) 1961 Zoster Vaccines (1 of 2) 1992 Pneumococcal Vaccine: 50+ Years (2 of 2 - PCV) 05/12/2014 05/12/2013 RSV Immunization Adult Patients (1 - 1-dose 75+ series) 2017 Cholesterol Screening (Lipid Panel) 08/09/2022 Falls Risk Assessment 08/09/2022 Social Influencers of Health Screening 08/09/2022 Diabetes: Annual Urine Albumin-Creatinine Ratio (uACR) 08/15/2022 Diabetes: Blood Sugar Control Test (HGBA1C) 08/15/2022 Hypertension/CHF/CAD Annual BMP Blood Test 08/15/2022 COVID-19 Vaccine ( season) 2024 12/12/2021, 07/28/2021, 11/01/2020, Additional history exists Depression Screening 08/30/2024 Influenza Vaccine (#1) 2025 07/02/2021, 2018 HIB Vaccines Aged Out No longer eligi ble based on patient's age to complete this topic HPV Vaccines Aged Out No longer eligi ble based on patient's age to complete this topic Hepatitis A Vaccines Aged Out No long er eligible based on patient's age to complete this topic Hepatitis B Vaccines Aged Out No long er eligible based on patient's age to complete this topic IPV Vaccines Aged Out No longer eligi ble based on patient's age to complete this topic MMR Vaccines Aged Out No longer eligi ble based on patient's age to complete this topic Meningococcal ACWY Vaccine Aged Out N o longer eligible based on patient's age to complete this topic Meningococcal B Vaccine Aged Out No l onger eligible based on patient's age to complete this topic RSV Immunization Patients Under 20 months Aged Out No longer eligible based on patient's age to complete this topic Varicella Vaccines Aged Out No longer eligible based on patient's age to complete this topic Advance Directives Documents on File Type Date Recorded Patient Strategy Consultant Expl anation Health Care Decision (hx) 10/19/2018 AD ESCOBAR DIRECTIVE Health Care Decision (hx) 10/19/2018 AD ESCOBAR DIRECTIVE Health Care Decision (hx) 10/19/2018 AD ESCOBAR DIRECTIVE Health Care Decision (hx) 10/19/2018 AD ESCOBAR DIRECTIVE Health Care Decision (hx) 10/19/2018 AD ESCOBAR DIRECTIVE Health Care Decision (hx) 10/19/2018 AD ESCOBAR DIRECTIVE Health Care Decision (hx) 10/18/2018 AD ESCOBAR DIRECTIVE Health Care Decision (hx) 10/18/2018 AD ESCOBAR DIRECTIVE Health Care Decision (hx) 10/18/2018 AD ESCOBAR DIRECTIVE Health Care Decision (hx) 10/18/2018 AD ESCOBAR DIRECTIVE Health Care Decision (hx) 10/18/2018 AD ESCOBAR DIRECTIVE Health Care Decision (hx) 10/18/2018 AD ESCOBAR DIRECTIVE Health Care Decision (hx) 10/22/2014 AD ESCOBAR DIRECTIVE Health Care Decision (hx) 10/22/2014 AD ESCOBAR DIRECTIVE Health Care Decision (hx) 10/22/2014 AD ESCOBAR DIRECTIVE Health Care Decision (hx) 10/22/2014 AD ESCOBAR DIRECTIVE Health Care Decision (hx) 10/22/2014 AD ESCOBAR DIRECTIVE Health Care Decision (hx) 10/22/2014 AD ESCOBAR DIRECTIVE Care Teams Service Aide Relationship Specialty Start Date End Date Ryan Mayberry DO [address] [place], [place] PCP - General Family Medicine 09/09/18
--- OUTSIDE RECORDS SUMMARY | 2025-04-06 09:31 | XMS_ITS | Clinical Summary ---
Author Organization [facility] Facility Address [address] [place] [id number] Care Team Providers Care Nuclear Physicist Name Role Phone Unavailable Primary Care Provider Unavailabl e Allergies No known active allergies Medications aspirin (ST BERNIE) 81 MG EC tablet Take 1 tablet by mouth 1 (one) time each day Active albuterol HFA (PROVENTIL HFA;VENTOLIN HFA) 108 (90 Base) MCG/ACT inhaler albuterol sulfate HFA 90 mcg/actuation aerosol inhaler Active budesonide-form oterol (SYMBICORT) 160-4.5 MCG/ACT inhaler 2 puffs by Other route Active Cholecalciferol 50 MCG (2000 UT) capsule Take 1 capsule by mouth 1 (one) time each day Active fluticasone HFA (Flovent HFA) 220 MCG/ACT inhaler Inhale 1 puff 2 (two) times a day Active omeprazole (PriLOSEC) [address] capsule Take 1 capsule by mouth 1 (one) time each day Active spironolactone (ALDACTONE) 25 MG tablet Take 1 tablet by mouth 1 (one) time each day Active losartan (COZAAR) 25 MG tablet Take 1 tablet by mouth 1 (one) time each day 1 Active rosuvastatin (CRESTOR) 40 MG tablet Take 40 mg by mouth 1 (one) time each day 1 Active carvedilol (COREG) 6.25 MG tablet Take 6.25 mg by mouth 2 (two) times a day 1 Active Active Problems Problem Noted Date Diagnosed Date Acute nontraumatic kidney injury 01/20/2021 Chronic kidney disease stage 2 01/20/2021 Disorder of vitamin D 01/20/2021 Hypertensive renal disease 01/20/2021 Proteinuria 01/20/2021 Renal disorder due to type 2 diabetes mellitus 0 01/20/2021 Resolved Problems Problem Noted Date Diagnosed Date Resolved Date Chronic kidney disease stage 3 01/20/2021 04/25/2021 Chronic kidney disease stage 1 01/20/2021 04/25/2021 Family History Medical History Relation Comments Heart disease Father Hypertension Father Cancer Mother Heart disease Mother Heart disease Sibling 1 Hypertension Sibling 2 Relation Status Comments Father Mother Sibling 1 Sibling 2 Social History Tobacco Use Types Packs/Day Years Used Date Smoking Tobacco: Former Smokeless Tobacco: Never Tobacco Cessation:Counseling Given: No Alcohol Use Standard Drinks/Week Comments Yes 0 (1 standard drink = 0.6 oz pure alcohol) Alcoholic Drinks/day: 1-2 drinks per day Sex and Gender Information Value Date Recorded Sex Assigned at Not on file Legal Sex Male 4:49 PM EST Gender Identity Not on file Sexual Orientation Not on file Last Filed Vital Signs Vital Sign Reading Time Taken Comments Blood Pressure 112/70 05/14/2022 2:59 PM EDT Pulse 82 05/14/2022 2:59 PM EDT Temperature - - Respiratory Rate - - Oxygen Saturation - - Inhaled Oxygen Concentration - - Weight 83.5 kg (184 lb) 05/14/2022 2:59 PM EDT Height 172.7 cm (5' 8 ) 04/25/2021 9:33 AM EDT Body Mass Index 27.98 04/25/2021 9:33 AM EDT Plan of Treatment Health Maintenance Due Date Last Done Comments Pneumococcal Vaccine: 50+ Years (2 of 2 - PCV) 05/12/2014 05/12/2013 Diabetes: Hemoglobin A1C 09/29/2020 020, 10/12/2019 Diabetes: Ophthalmology Exam 09/29/2020 Diabetes: Pedal Pulse Checked 09/29/2020 Diabetes: Sensory Foot Exam 09/29/2020 Diabetes: Visual Foot Exam 09/29/2020 Influenza Vaccine (#1) 2025 06/27/2019 Pneumococcal Vaccine: Peds ( 0 to 5 Years) and At-Risk Patients (6 to 49 Years) Discontinued 05/12/2013 Hepatitis B Vaccine Aged Out No longe r eligible based on patient's age to complete this topic Procedures Procedure Name Priority Date/Time Associated Diagnosis Comments BLOOD PANEL (HC) Routine 12/29/2019 12:0 0 AM EDT from Last 3 Months or Most Recently Relevant to Health Maintenance Results * (ABNORMAL) Blood Panel (12/29/2019 12:00 AM EDT) Sodium 138 137 - 145 mmol/L PVNMA Potassium 5.1 3.5 - 5.1 mmol/L PVNMA BUN 22(H) 9 - 20 mg/dl PVNMA eGFR 51(L) >60 ml/min PVNMA Creatinine 1.5(H) 0.70 - 1.30 mg/dl PVNMA Calcium 9.6 8.4 - 10.2 mg/dl PVNMA Carbon Dioxide (CO2) 24 22 - 30 mmol/L PVNMA eGFR Non- 44(L) >60 ml/min PVNMA Hemoglobin A1C 6.1(H) <5 % PVNMA Phosphorus, Serum 3.8 2.5 - 4.5 mg/dl PVNMA 12/29/2019 us [facility] Conversion LAB [id number] LICITED RESULTS Final Result PVNMA from Last 3 Months or Most Recently Relevant to Health Maintenance Insurance [facility] Medicare [facility] Medicare
--- NOTE | 2025-04-06 09:33 | HO.NEPHOV_ITS ---
Vital Signs 04/06/25 09:35 Height 5 ft 8 in Weight 181 lb 4 oz BMI 27.6 BP 80/50 L Blood Pressure Location Lt brachial Position Sitting Pulse 92 Pulse Source Pulse Oximeter Pulse Oximetry (%) 96 Oxygen Delivery Method Room Air Intake Visit Reasons: 3mon [id number] Quality Assistant Required: No Accompanied by: Spouse Allergies No Known Allergies Allergy (Verified 04/06/25 09:35) HPI Comments Details: 84-year-old gentleman with past medical history of significant for CKD IIIbA3, vascular disease including CAD status post CABG, ischemic cardiomyopathy s/p ICD implant, PVD status post bypass graft, COPD, SOFI, peripheral neuropathy, possible dementia is here for followup visit He is here with his Debra Hypertension: on valsartan 40, metoprolol 100mg daily, spironolactone 25. lately blood pressures on lower side; possibly has orthostatic hypotension. CAD: s/p CABG and iCD in 2016; on aspirin and rosuvastatin Has urine retention problem, has enlarged prostrate He had a fall 3 days ago due to low blood pressures. [facility]LY [facility], [facility] Medical History (Updated 01/19/25 @ 12:05 by Stephon Brionse MD) Orthostatic hypotension Left bundle branch block (LBBB) Ischemic cardiomyopathy with implantable cardioverter-defibrillator (ICD) CAD (coronary artery disease) PVD (peripheral vascular disease) High cholesterol Hypertension Arthritis Back pain Anemia Hiatal hernia GERD (gastroesophageal reflux disease) Hx of deep venous thrombosis Diabetes COPD (chronic obstructive pulmonary disease) CKD (chronic kidney disease) CHF (congestive heart failure) Pacemaker Surgical History Hx of colonoscopy History of esophagogastroduodenoscopy (EGD) History of femoropopliteal bypass Hx of coronary artery bypass graft H/O mitral valve replacement Social History Are you a primary critical care cns to a significant other at home: No Do you presently have visiting nurse or other home services: No Comment: pt states has passes out because of low blood pressures Review of Systems Const Details: Const : no body aches, no chills, no excessive sweating and no fatigue Eyes: no blurry vision and no change in vision ENT: no bleeding gums and no change in voice, no dizziness Card: no chest pain, no shortness of breath, no orthopnea, no PND Resp: no cough, no excessive phlegm production, no SOB GI: no abdominal pain and no nausea, no vomiting : no hematuria, no urinary frequency and no difficulty voiding Musc: no abnormal gait, no bone pain Neuro: no abnormal movements, + weakness, + dizziness, +abnormal gait Psych: no behavioral changes and no change in appetite Endo: no change in body appearance, no cold intolerance, no excessive sweating and no fatigue Physical Exam Vital Signs: Last Vital Signs Pulse 92 04/06/25 09:35 BP 80/50 L 04/06/25 09:35 Pulse Ox 96 04/06/25 09:35 Oxygen Delivery Method Room Air 04/06/25 09:35 BMI result Body Mass Index 27.6 General: very pleasant elderly gentleman comfortable not in any distress Nutritional Appearance: well nourished and weight normal Eyes: normal position, no icterus Neck: No lymphadenopathy, no thyromegaly Resp: bilateral air entry equal, no basal cracklers, lungs clear Cardio: normal S1, S2 heard, no murmur heard, no edema GI: soft, nontender, no guarding, no hepatosplenomegaly : bladder normal to inspection, bladder normal to palpation, no renal angle tenderness Skin: no rashes or lesions noted and elasticity normal Neuro: oriented to person, oriented to place, oriented to time and moves all extremities Results Reviewed Nephrology Results: Sodium, (135-145) 141 mmol/L 01/19/25 Potassium, (3.3-5.1) 4.3 mmol/L 01/19/25 Chloride, (96-108) 102 mmol/L 01/19/25 Carbon Dioxide, (22-29) 27 mmol/L 01/19/25 BUN, (9-16) 23 mg/dL H 01/19/25 Creatinine, (0.5-1.4) 1.49 mg/dL H 01/19/25 Calcium, (8.4-10.2) 10.2 mg/dL Δ 01/19/25 Phosphorus, (2.7-4.5) 2.6 mg/dL L 01/19/25 PTH Intact, (8.7-77.1) 29.0 pg/mL 01/19/25 Urine Creatinine 32.98 mg/dL 01/19/25 Assessment & Plan Assessment & Plan (1) CKD (chronic kidney disease): Comment: related to medications Code(s): N18.9 - Chronic kidney disease, unspecified Category: Medical (2) Metabolic acidosis: Code(s): E87.20 - Acidosis, unspecified Category: Medical (3) Sacroiliitis: Code(s): M46.1 - Sacroiliitis, not elsewhere classified Category: Medical Plan Chronic kidney disease stage IIIa possibly secondary to significant vascular disease - TTE done on 09/03/2023 showed slightly reduced LV systolic function, has a pacer/ICD and also Watchman device in place and some evidence of pulmonary hyp ertension - creatinine 1.60 , GFR 43 in 12/27/2024, decreased to 1.49 and GFR 45 on repeat labs. - UACR 327.4 on valsartan 40mg and spironolactone 25 - Renal ultrasound showed 11.4 cm right kidney, 11.7 cm left kidney, no obstruction - avoid nephrotoxic medications not limited to NSAIDs, contrast etc. - importance of diet, weight loss, adequate blood pressure control explained to patient - continue Farxiga, valsartan would provide renal protection. - encourage adequate fluid intake - will get hepatitis panel, HIV, GREGORY, ANCA, complements, SPEP, UPEP, serum free light chains, PLA2R to evaluate the cause of proteinuria. Acid-base disorder: - has metabolic acidosis, bicarb 20 - we will start on oral Bicitra Hypertension: - patient has hypotension and orthostatic hypotension leading to fall and ER visit few days ago. Initial blood pressure 80/50 after he walked into the room, once settled down improved to 96/60mmHg. Will stop spironolactone given persistent hypotension and decrease metoprolol to 50mg dailly. - if the patient has repeated falls or dizziness will add Fludrocortisone but hold for now given his cardiac history. Asked the patient to give us a call if this happens and we will send prescription. - blood pressures are lower side cannot increase medications for proteinura. - target blood pressures less than 130 systolic - continue valsartan, metoprolol and spironolactone. Orders: Orders Basic Metabolic Panel Today E87.20 - Acidosis, unspecified, N18.9 - Chronic kidney disease, unspecified UA and rflx microscopic Today E87.20 - Acidosis, unspecified, N18.9 - Chronic kidney disease, unspecified Total Protein Urine Random Today E87.20 - Acidosis, unspecified, N18.9 - Chronic kidney disease, unspecified Creatinine Urine Today E87.20 - Acidosis, unspecified, N18.9 - Chronic kidney disease, unspecified HIV Ab/Ag Today E87.20 - Acidosis, unspecified, N18.9 - Chronic kidney disease, unspecified ANCA Vasculitides Today E87.20 - Acidosis, unspecified, N18.9 - Chronic kidney disease, unspecified [place]/Lambda Light Chain Serum Today E87.20 - Acidosis, unspecified, N18.9 - Chronic kidney disease, unspecified Phospholipase A2 Receptor Pnl Today E87.20 - Acidosis, unspecified, N18.9 - Chronic kidney disease, unspecified Microalbumin, Random (w Creat) Today E87.20 - Acidosis, unspecified, N18.9 - Chronic kidney disease, unspecified Hepatitis B,C Profile Today E87.20 - Acidosis, unspecified, N18.9 - Chronic kidney disease, unspecified GREGORY Reflex Titer and Pattern Today E87.20 - Acidosis, unspecified, N18.9 - Chronic kidney disease, unspecified Complement C3 Today E87.20 - Acidosis, unspecified, N18.9 - Chronic kidney disease, unspecified Complement C4 Today E87.20 - Acidosis, unspecified, N18.9 - Chronic kidney disease, unspecified Protein Electrophoresis, Serum Today E87.20 - Acidosis, unspecified, N18.9 - Chronic kidney disease, unspecified Protein Electrophoresis,Ran Ur Today E87.20 - Acidosis, unspecified, N18.9 - Chronic kidney disease, unspecified Coding Level of Care Code Est Pt Level 4 (70289) Diagnoses CKD (chronic kidney disease) N18.9 Metabolic acidosis E87.20 Sacroiliitis M46.1
[2025-04-06 09:35] VITALS: BP 80/50; PULSE 92; O2SAT 96; BMI 27.6
== END 2025-04-06 10:09 | disposition home or self-care (01) ==
LOC: HO.HKA 09:26
PROVIDERS: PCP Family Medicine; Visit Provider Internal Medicine Critical Care Medicine
DX: N18.9 Chronic kidney disease, unspecified (principal); E87.20 Acidosis, unspecified; M46.1 Sacroiliitis, not elsewhere classified
CPT/HCPCS: 99214

== ENCOUNTER → 2025-04-06 09:25 | Outpatient (BNVA) | payer MEDICARE, SELFPAY | PROVIDERS: PCP Family Medicine; Visit Provider Internal Medicine Critical Care Medicine | DX: I12.9 Hypertensive chronic kidney disease with stage 1 through stage 4 chronic kidney disease, or unspecified chronic kidney disease (principal); N18.9 Chronic kidney disease, unspecified; E87.20 Acidosis, unspecified; M46.1 Sacroiliitis, not elsewhere classified | CPT/HCPCS: 99212 ==

== ENCOUNTER 2025-04-06 10:22 | Outpatient (REF) | payer MEDICARE, SELFPAY ==
[2025-04-06 14:08] LABS: Anion Gap 13 (12-20); Blood Urea Nitrogen 23 mg/dL (9-16); Calcium 9.8 mg/dL (8.4-10.2); Carbon Dioxide 28 mmol/L (22-29); Chloride 105 mmol/L (96-108); Estimated Glomerular Filt Rate 40; Potassium 4.1 mmol/L (3.3-5.1); Sodium 142 mmol/L (135-145)
[2025-04-09 08:48] LABS: HBS Num1 0.00 mIU/mL (0-7.99); HBc Num1 0.06 S/CO (0.00-0.79); HBsAGNum1 0.37 S/CO (0.00-0.99); HIV Num 1 0.05 S/CO (0.00-0.99); Hepatitis B Surface Antigen Negative (Negative); ~HepC Num1 0.09 S/CO (0.00-0.79); ~Hepatitis B Surface Antibody NONREACTIVE (Nonreactive); ~Hepatitis C Antibody Nonreactive (Nonreactive)
[2025-04-09 21:43] LABS: Proteinase 3 PR3 Antibodies <1.0 AI
[2025-04-10 11:38] LABS: Anti Nuclear Antibody Screen NEGATIVE (NEGATIVE)
[2025-04-10 23:29] LABS: Prot Elec - Albumin 4.2 g/dL (3.8-4.8); Prot Elec - Alpha1 0.3 g/dL (0.2-0.3); Prot Elec - Alpha2 0.8 g/dL (0.5-0.9); Prot Elec - Beta 1 0.4 g/dL (0.4-0.6); Prot Elec - Beta 2 0.3 g/dL (0.2-0.5); Prot Elec - Gamma 0.8 g/dL (0.8-1.7); Prot Elec - Total Protein 6.8 g/dL (6.1-8.1)
[2025-04-11 15:18] LABS: Kappa, Serum 167 mg/dL (176-443); Kappa/Lambda Ratio, Serum 1.36 (1.29-2.55); Lambda, Serum 123 mg/dL (91-240)
[2025-04-12 04:04] LABS: Phospholipase A2 IgG ELISA <4 RU/mL; Phospholipase A2 IgG IFA NEGATIVE (NEGATIVE)
== END 2025-04-06 10:23 | disposition home or self-care (01) ==
LOC: HO.10HDL 10:22
PROVIDERS: Visit Provider Internal Medicine Critical Care Medicine
DX: E87.20 Acidosis, unspecified (principal); N18.9 Chronic kidney disease, unspecified
CPT/HCPCS: 36415; 80048; 83520; 83883; 84165; 86021; 86038; 86160; 86255; 86704; 86706; 86803; 87340; 87389

== ENCOUNTER 2025-04-07 09:17 | Outpatient (REF) | payer MEDICARE, SELFPAY ==
--- OUTSIDE RECORDS SUMMARY | 2025-04-07 09:19 | XMS_ITS | Clinical Summary ---
Author Organization [facility] Facility Address [address] [place] [id number] Care Team Providers Care Care Coordinator Name Role Phone Unavailable Primary Care Provider [...] mg/dl PVNMA 12/29/2019 us Rtama Conversion LAB [id number] LICITED RESULTS Final Result PVNMA from Last 3 Months or Most Recently Relevant to Health Maintenance Insurance [facility] Medicare [facility] Medicare
--- OUTSIDE RECORDS SUMMARY | 2025-04-07 09:19 | XMS_ITS | Clinical Summary ---
Author Organization [facility] Address [address] [place] [address] Care Team Providers Care Insurance Account Executive Name Role Phone Ryan Mayberry MD Primary Care Provider [phone] Social History Tobacco Use Types Packs/Day Years [...] age to complete this topic Care Teams Insurance Account Executive Relationship Specialty Start Date End Date Ryan Mayberry MD [address] [place] [address] PCP - General Family Medicine 09/09/18
--- OUTSIDE RECORDS SUMMARY | 2025-04-07 09:19 | XMS_ITS | Clinical Summary ---
Author Organization [facility] Address [address] [place] [address] Care Team Providers Care Weights And Measures Inspector Name Role Phone Ryan Mayberry DO Primary Care Provider [phone] Surgical History Surgery Date Site/Laterality Comments CORONARY ARTERY BYPASS GRAFT 05/11/2013 PROCEDURE: HISTORICAL CABG OTHER SURGICAL HISTORY 11/05/2015 PROCEDURE: AICD, DUAL CHAMBER UPPER GASTROINTESTINAL ENDOSCOPY 05/05/2018 PROCEDURE: HI UPPER GI ENDOSCOPY PERFORMED COLONOSCOPY 05/05/2018 PROCEDURE: HISTORICAL COLONOSCOPY OTHER SURGICAL HISTORY 05/15/2013 PROCEDURE: HISTORICAL MITRAL VALVE REPL BACK SURGERY 10/08/2014 PROCEDURE: HISTORICAL BACK SURGERY; COMMENT: Lumbar spinal fusion OTHER SURGICAL HISTORY 12/20/2012 Right PROCEDURE: HI TEAEC W/WO PATCH GRAFT COMMON FEMORAL TOTAL [...] MVR (mitral valve replacement); COMMENT: 2012 Cardiomyopathy ([facility] V24, [facility] V28) 11/22/2019 DX:Cardiomyopathy ([facility]); COM MENT: EF 16 % CHF (congestive heart failur e) ([facility]24, [facility] V28) 03/08/2018 DX:CHF (congestive heart fa ilure) ([facility]) Total knee replacement status 11/22/2019 DX :Total knee replacement status; COMMENT: Left CAD (coronary artery disease) 03/08/2018 DX :CAD (coronary artery disease); COMMENT: CABG Chronic obstructive pulmonar y disease ([facility] V24, [facility] V28) 03/08/2018 DX:Chronic obstructive pulm onary disease ([facility]) Diverticulosis of colon 03/08/2018 DX:Diver ticulosis of colon Hyperlipidemia 03/08/2018 DX:Hyperlipidemi a Elevated PSA 11/22/2019 DX:Elevated PSA Macrocytic anemia 11/22/2019 DX:Macrocytic anemia Proteinuria 03/08/2018 DX:Proteinuria Peripheral vascular disease ([facility] V24) 03/08/2018 DX:Peripheral vascular disea se ([facility]) Osteoarthritis 11/22/2019 DX:Osteoarthriti s; COMMENT: SI joints Chronic kidney disease 11/22/2019 DX:Chroni c kidney disease DM (diabetes mellitus), type 2 with peripheral vascular complications ([facility] V24, [facility] V28) 11/22/2019 DX:DM (diabetes mellitus), type 2 with peripheral vascular complications ([facility]) Social History Tobacco Use Types Packs/Day Years [...] Documents on File Type Date Recorded Patient Restaurant Inspector Expl anation Health Care Decision (hx) 10/19/2018 [...] (hx) 10/22/2014 AD ESCOBAR DIRECTIVE Care Teams Weights And Measures Inspector Relationship Specialty Start Date End Date Ryan Mayberry DO [address] [place], [place] PCP - General Family Medicine 09/09/18
[2025-04-07 09:57] LABS: Appearance Urine Clear; Glucose Urine UA >=1000 mg/dL (Negative); PH 6.0 (5.0-9.0); Specific Gravity - Urine 1.020 (1.005-1.025); UMIC TRIGGER UA YES
[2025-04-07 11:15] LABS: Microalbum/Creatinine Ratio Ur 270.1 ug/mg cr (<30); Total Protein Urine Random 126 mg/dL (<12)
[2025-04-10 10:14] LABS: PEU-Protein Creat Ratio Rand 1.788 (0.025-0.148); PEU-Rand. Prot/Creat Ratio 1788 mg/g creat (25-148); PEU-Random Ur. Gamma Globulin 12 %; PEU-Random Urine A1 Globulin 18 %; PEU-Random Urine A2 Globulin 24 %; PEU-Random Urine Albumin 23 %; PEU-Random Urine Beta Globulin 23 %; PEU-Random Urine Creatinine 99 mg/dL (20-320); PEU-Random Urine Protein 177 mg/dL (5-25)
== END 2025-04-07 09:18 | disposition home or self-care (01) ==
LOC: HO.LNP 09:17
PROVIDERS: Visit Provider Internal Medicine Critical Care Medicine
DX: N18.9 Chronic kidney disease, unspecified (principal); E87.20 Acidosis, unspecified
CPT/HCPCS: 81001; 82043; 82570; 84156; 84166